=== PATIENT | male | born 1945 | race Caucasian/White ===

== ENCOUNTER 2019-07-07 01:09 | Outpatient (CLI) | payer BC, SELFPAY ==
[2019-07-07 12:33] LABS: Abs Immature Grans 0.01 k/cumm (0.0-0.09); Absolute Basophil Count 0.03 k/cumm (0.0-0.2); Absolute Eosinophil Count 0.31 k/cumm (0.0-0.7); Absolute Monocyte Count 0.58 k/cumm (0.11-0.7); Basophils % 0.5; Eosinophils % 4.9; HCT 39.6 % (40.0-50.0); HGB 12.9 g/dL (13.5-17.5); Immature Grans % 0.2 %; Lymphocytes % 20.5; Mean Corp. HGB Concentration 32.6 g/dL (32.0-36.0); Mean Corpuscular Hemoglobin 26.9 pg (27.0-33.0); Mean Corpuscular Volume 82.5 fL (80-95); Mean Platelet Volume 11.2 fL (8.0-11.0); Monocytes % 9.2; Neutrophils % 64.7; Platelet Count 321 x1000/uL (130-400); RBC Distribution Width 14.7 % (11.8-14.1); White Blood Cell Count 6.33 k/cumm (4.4-10.8)
[2019-07-07 13:19] LABS: ALT 19 U/L (16-63); AST 11 U/L (15-37); Albumin 3.8 g/dL (3.4-5.0); Alkaline Phosphatase 123 U/L (46-116); Anion Gap 11.8 mmol/L (3-11); BUN 20 mg/dL (7-18); Bilirubin, Total 0.6 mg/dL (0.2-1.0); CO2 21.2 mmol/L (21.0-32.0); CREATININE 1.17 mg/dL (0.70-1.30); Calcium 9.1 mg/dL (8.5-10.1); Calculated LDL 91 mg/dL (<100); Chloride 108 mmol/L (98-107); Cholesterol 161 mg/dL (<200); Glucose 107 mg/dL (74-106); HDL Cholesterol 47 mg/dL (40-60); Hemoglobin A1C 5.9 % (3.8-5.6); Potassium 4.3 mmol/L (3.5-5.1); Sodium 141 mmol/L (136-145); Total Protein 7.3 g/dL (6.4-8.2); Triglyceride 116 mg/dL (<150)
[2019-07-07 13:30] LABS: ESR 22 mm/hr (1-20)
[2019-07-08 09:15] LABS: PSA, Diagnostic <0.1 ng/mL (0.0-6.5)
== END 2019-07-07 01:29 ==
PROVIDERS: PCP Family Medicine; Visit Provider Family Medicine
DX: E11.9 Type 2 diabetes mellitus without complications (principal); C61 Malignant neoplasm of prostate
CPT/HCPCS: 36415; 80053; 80061; 85652; 83036; 84153; 85025

== ENCOUNTER 2019-07-25 11:23 | Emergency (ER) | payer BC, SELFPAY ==
[2019-07-25 11:33] VITALS: BP 164/79; PULSE 81; RESP 16; TEMP 36.3; O2SAT 97
[2019-07-25 12:10] LABS: Bilirubin Negative (Negative); Blood Small (Negative); Clarity Sl Cloudy (Clear); Glucose Negative (Negative); Ketones Negative (Negative); Leukocyte Esterase Small (Negative); Nitrite Negative (Negative); Urobilinogen 0.2 EU/dL (Up TO 0.2)
[2019-07-25 12:18] LABS: Bacteria Many HPF (Negative); C & S Indicated? Yes; WBC >50 HPF (0-5)
[2019-07-25 12:25] VITALS: BP 134/81; PULSE 78; RESP 18; TEMP 36.6; O2SAT 98
[2019-07-25 12:28] LABS: Abs Immature Grans 0.01 k/cumm (0.0-0.09); Absolute Basophil Count 0.04 k/cumm (0.0-0.2); Absolute Eosinophil Count 0.31 k/cumm (0.0-0.7); Absolute Lymphocyte Count 1.44 k/cumm (1.2-3.4); Absolute Monocyte Count 0.58 k/cumm (0.11-0.7); Absolute Neutrophil Count 5.41 k/cumm (1.2-6.7); Basophils % 0.5; HCT 39.3 % (40.0-50.0); HGB 12.9 g/dL (13.5-17.5); Immature Grans % 0.1 %; Lymphocytes % 18.5; Mean Corp. HGB Concentration 32.8 g/dL (32.0-36.0); Mean Corpuscular Hemoglobin 26.9 pg (27.0-33.0); Mean Platelet Volume 10.7 fL (8.0-11.0); Monocytes % 7.4; Neutrophils % 69.5; Platelet Count 302 x1000/uL (130-400); RBC 4.79 m/cumm (4.50-6.00); RBC Distribution Width 14.6 % (11.8-14.1); White Blood Cell Count 7.79 k/cumm (4.4-10.8)
--- NOTE | 2019-07-25 12:43 | ED.GENADUL_ITS ---
Discharge Plan Disposition Patient Disposition: HOME Condition: Stable Discharge Details Chief Complaint: Urinary Clinical Impression: Acute UTI Primary Care Provider: Mitul Velazquez ED Provider: Elie Hernandez Benicia Meds and New Rx's Prescriptions: New cephalexin 500 mg tablet 500 mg PO BID 7 Days Qty: 14 RF: 0 Continued omeprazole 20 mg capsule,delayed release(DR/EC) 20 mg PO DAILY RF: 0 tamsulosin 0.4 mg capsule 0.4 mg PO DAILY RF: 0 repaglinide 1 mg tablet 1 mg PO BID RF: 0 bisoprolol fumarate 5 mg tablet 1.25 mg PO DAILY RF: 0 aspirin [Adult Aspirin Regimen] 81 mg tablet,delayed release (DR/EC) 81 mg PO DAILY RF: 0 mesalamine 1,000 mg suppository 1 gm FL BID Qty: 30 RF: 11 sucralfate 100 mg/mL suspension 2 gm FL DAILY Qty: 30 RF: 11 Fergon 270 mg (27 mg iron) tablet 270 mg PO DAILY Qty: 30 RF: 2 amlodipine [Norvasc] 10 MG tablet 10 mg PO DAILY Qty: 90 RF: 4 oxybutynin chloride 5 mg tablet 5 mg PO DAILY RF: 0 Discharge Instructions Instructions: Urinary Tract Infection in Men (ED) Additional Instructions: Keflex as directed. Plenty of fluids to avoid dehydration. Cpsb-hna-[id number] medications such as Azo for symptomatic control. Please watch for new or worsening symptoms and return to the ER for any concerns. I would contact your primary care provider later today or tomorrow for prompt outpatient reevaluation and to follow-up with urology as already scheduled next week. Urine culture is pending Discharge Data Discharge Date/Time-TO BE ENTERED AT DEPARTURE: 07/25/19 13:17 Medical Decision Making 74-year-old gentleman with 1 week history of intermittent urinary hesitancy, dysuria, urgency. He denies any fever, abdominal pain, nausea, vomiting, back pain. No history of renal stones. He appears well, nontoxic. Given his age and comorbidities will obtain routine laboratory values as well as a urinalysis. Patient is scheduled to be seen by his urologist in 1 week. Work-up in the ER reveals urinalysis with greater than 50 white cells. GFR in the 50s. Otherwise rather unremarkable for emergent or acute process. No obvious hematuria, discussed that this greatly decreases the chance of a kidney stone and we discussed that clinically I did not believe this was a stone. Certainly urinary tract infection can cause the symptoms. He appears well, nontoxic. Will initiate Keflex therapy, culture pending. Patient is currently asymptomatic, has no questions or concerns, comfortable with discharge, Keflex, encouraged to return to the ER for new or worsening symptoms, otherwise follow- up with his urology team next week as already scheduled. Medical Records Medical records reviewed: Yes I reviewed the patient's medical records. Lab Data Lab results reviewed: Yes I reviewed the patient's lab results. Lab results narrative: 07/25/19 12:06 Urine - Reflex from Ua Urine Culture - Pending Laboratory Tests Range/Units 07/25/19 07/25/19 07/25/19 12:06 12:15 12:15 WBC (4.4-10.8) k/cumm 7.79 RBC (4.50-6.00) m/cumm 4.79 Hgb (13.5-17.5) g/dL 12.9 L Hct (40.0-50.0) % 39.3 L MCV (80-95) fL 82.0 MCH (27.0-33.0) pg 26.9 L MCHC (32.0-36.0) g/dL 32.8 RDW (11.8-14.1) % 14.6 H Plt Count (130-400) x1000/uL 302 MPV (8.0-11.0) fL 10.7 Immature Gran % % 0.1 Neutrophils % 69.5 Lymphocytes % 18.5 Monocytes % 7.4 Eosinophils % 4.0 Basophils % 0.5 Absolute Neutrophils (1.2-6.7) k/cumm 5.41 Absolute Lymphocytes (1.2-3.4) k/cumm 1.44 Absolute Monocytes (0.11-0.7) k/cumm 0.58 Absolute Eosinophils (0.0-0.7) k/cumm 0.31 Absolute Basophils (0.0-0.2) k/cumm 0.04 Sodium (136-145) mmol/L 143 Potassium (3.5-5.1) mmol/L 4.3 Chloride (98-107) mmol/L 108 H Carbon Dioxide (21.0-32.0) mmol/L 25.7 Anion Gap (3-11) mmol/L 9.3 BUN (7-18) mg/dL 17 Creatinine (0.70-1.30) mg/dL 1.38 H Estimated GFR/1.73 m2 (mL/min/1.73m2) 50.65 Glucose (74-106) mg/dL 99 Calcium (8.5-10.1) mg/dL 8.7 Total Bilirubin (0.2-1.0) mg/dL 0.5 AST (15-37) U/L 13 L ALT (16-63) U/L 22 Alkaline Phosphatase (46-116) U/L 139 H Total Protein (6.4-8.2) g/dL 7.8 Albumin (3.4-5.0) g/dL 3.7 Urine Color (Yellow) Yellow Urine Clarity (Clear) Sl cloudy Urine pH (5-8) 6.0 Ur Specific [place] (1.005-1.025) 1.020 Urine Protein (Negative) mg/dL Trace H Urine Ketones (Negative) mg/dL Negative Urine Blood (Negative) Small H Urine Nitrite (Negative) Negative Urine Bilirubin (Negative) Negative Urine Urobilinogen (Up TO 0.2) EU/dL 0.2 Ur Leukocyte Esterase (Negative) Small H Urine RBC Not Applicable Urine WBC (0-5) HPF >50 H Ur Epithelial Cells Not Applicable Urine Crystals Not Applicable Urine Bacteria (Negative) HPF Many Urine Mucus Not Applicable Ur Culture Indicated? Yes Urine Glucose (Negative) mg/dL Negative HPI General Mode of arrival: ambulatory . Date/Time Provider Initiated Documentation: 07/25/19 11:23 . Limitations to Documentation: no limitations . Information obtained by: patient . HPI Narrative: 74-year-old gentleman with a history of prostate cancer, status post radiation, diabetes type 2, hyperlipidemia, hypertension, ankylosing spondylitis, history of GI bleed, presents to the ER today for evaluation of what he describes as penile discomfort, urinary urgency, urinary retention, intermittently for the past 6 days. He contacted his primary care provider and they recommended coming to the ER. He is scheduled to be seen by the urology team next week. He denies any fever, chills, abdominal pain, nausea, vomiting, diarrhea, flank pain, any change of his chronic back pain. Denies history of renal stones. Patient does note that he has been unable to retract his foreskin since he had the radiation back in 2017, this is not new or different. He reports that his symptoms were last present earlier this morning between 3 and 4 AM but he is currently asymptomatic. Patient has taken an extra dose of Tamsulosin on a daily basis over the past week in order to alleviate his symptoms Related Data Home Medications Medication Instructions Recorded Confirmed amlodipine [Norvasc] 10 mg PO DAILY #90 tab-cap 06/27/14 07/19/19 aspirin 81 mg tablet,delayed 81 mg PO DAILY 07/05/19 07/19/19 release bisoprolol fumarate 5 mg tablet 1.25 mg PO DAILY tab 07/05/19 07/19/19 mesalamine 1,000 mg rectal 1 gm FL BID #30 each 07/05/19 07/25/19 suppository omeprazole 20 mg capsule,delayed 20 mg PO DAILY 07/05/19 07/25/19 release repaglinide 1 mg tablet 1 mg PO BID tab 07/05/19 07/25/19 tamsulosin 0.4 mg capsule 0.4 mg PO DAILY 07/05/19 07/25/19 sucralfate 100 mg/mL oral 2 gm FL DAILY #30 day 07/06/19 07/25/19 suspension ferrous gluconate 270 mg (27 mg 270 mg PO DAILY #30 tab 07/19/19 07/25/19 iron) tablet oxybutynin chloride 5 mg tablet 5 mg PO DAILY 07/21/19 07/25/19 cephalexin 500 mg PO BID 7 Days #14 tab 07/25/19 Previous Rx's Medication Instructions Recorded mesalamine 1,000 mg rectal 1 gm FL BID #30 each 07/05/19 suppository sucralfate 100 mg/mL oral 2 gm FL DAILY #30 day 07/06/19 suspension ferrous gluconate 270 mg (27 mg 270 mg PO DAILY #30 tab 07/19/19 iron) tablet cephalexin 500 mg PO BID 7 Days #14 tab 07/25/19 Allergies Allergy/AdvReac Type Severity Reaction Status Date / Time No Known Allergies Allergy Unverified 07/25/19 11:37 General Stated Complaint: Urinary CHARAN: 3 Review of Systems Constitutional Constitutional: Denies chills, Denies fatigue, Denies fever(s) and Denies headache(s) ENT Ears, Nose, Mouth, and Throat: Denies headache(s) Cardiovascular Cardiovascular: Denies chest pain and Denies dyspnea Respiratory Respiratory: Denies dyspnea Gastrointestinal Gastrointestinal: Denies abdominal pain, Denies nausea and Denies vomiting Genitourinary Genitourinary: Denies hematuria, Reports difficulty urinating, Denies genital lesions, Reports genital pain, Reports dysuria, Denies flank pain, Denies penile discharge, Denies scrotal swelling, Denies testicular mass, Denies testicular pain, Reports urinary frequency, Reports urinary hesitancy and Denies urinary incontinence Musculoskeletal Musculoskeletal: Reports back pain (Chronic) Integumentary/Breasts Skin/Breast: Denies rash Neurologic Neurologic: Denies headache(s) Endocrine Endocrine: Denies fatigue Hematologic/Lymphatic Hematologic/Lymphatic: Denies easy bleeding and Denies easy bruising [facility] Family History Mother No problems noted. Father No problems noted. Sister No problems noted. Sister No problems noted. Brother No problems noted. Daughter No problems noted. Daughter No problems noted. Maternal Grandfather No problems noted. Paternal Grandfather No problems noted. Maternal Grandmother No problems noted. Paternal Grandmother No problems noted. Social History Smoking/Tobacco Use Status: Former Tobacco Use Quit Date: 06/08/02 Tobacco: How many years used: 15 Second Hand Exposure: No Alcohol Intake: former Drug use: Occasionally Substance use type: marijuana Caregiver/Support person: No Household members: spouse Housing: house Communication Needs: None Do you need help understanding health information?: Rarely Pets and animals: No Sexually active: No Do you think of yourself as: straight/heterosexual Current gender identity: male What is your relationship status?: How often do you talk on the phone with friends or family?: twice per week How often do you get together with friends or relatives?: three or more times per week How often do you attend mormonism or taoist services?: decline to answer Do you belong to any clubs or organized social groups?: no Panel score (0-1 are the most socially isolated patients): 2 What type of physical activity do you participate in: none Frequency: does not exercise Rosemary/Nondenominational: None Special rosemary needs: No Seatbelt use: always Helmet use: No Drive intox or ride w/intox solo truck driver: No Exam Const General: cooperative, healthy appearing, comfortable and no acute distress Orientation: alert and awake HENNM Head: normal to inspection, normocephalic and atraumatic Mouth: moist mucous membranes Eyes Conjunctivae: conjunctivae normal Neck Neck: normal visual inspection, trachea midline and supple Resp Effort & Inspection: normal respiratory effort Auscultation: clear to auscultation bilaterally Cardio Rate: regular rate Rhythm: regular rhythm GI Inspection: normal to inspection Palpation: soft, not firm, no guarding, no masses, no pulsatile masses and nontender Auscultation: normal bowel sounds Male General Exam: No normal external exam, No ecchymosis, No edema, No erythema, No hernia, No inguinal lymphadenopathy, No lesions, No perineal induration and No tenderness Penis: normal penis (Normal except for foreskin as below), not edematous, non retractile foreskin (Patient reports that this is baseline status post radiation) and no swelling Scrotum: scrotum normal Testes: normal Neuro General: alert and awake Psych Appearance: grossly normal Mental Status: mental status grossly normal Course Vital Signs Vital signs: Vital Signs Temperature 36.3 C L 07/25/19 11:33 Pulse 81 07/25/19 11:33 Respiratory Rate 16 07/25/19 11:33 Blood Pressure 164/79 H 07/25/19 11:33 Pulse Oximetry 97 07/25/19 11:33 Temperature 36.6 C 07/25/19 12:25 Temperature Source Skin 07/25/19 12:25 Pulse 78 07/25/19 12:25 Pulse Rhythm Regular 07/25/19 12:25 Pulse Strength Normal 07/25/19 12:25 Respiratory Rate 18 07/25/19 12:25 Respiratory Effort 07/25/19 12:25 Respiratory Depth Normal 07/25/19 12:25 Respiratory Pattern Normal 07/25/19 12:25 Blood Pressure 134/81 07/25/19 12:25 Blood Pressure Mean 98 07/25/19 12:25 Blood Pressure Position Sitting 07/25/19 12:25 Pulse Oximetry 98 07/25/19 12:25 Oxygen Delivery Method Room Air 07/25/19 12:25 Oxygen Flow Rate 0 07/25/19 12:25 Pain Level 5 07/25/19 12:25 Comment 07/25/19 11:33 Lab/Test Results Lab/Test Results: 07/25/19 12:06 Urine - Reflex from Ua Urine Culture - Pending Laboratory Tests Range/Units 07/25/19 07/25/19 12:06 12:15 WBC (4.4-10.8) k/cumm 7.79 RBC (4.50-6.00) m/cumm 4.79 Hgb (13.5-17.5) g/dL 12.9 L Hct (40.0-50.0) % 39.3 L MCV (80-95) fL 82.0 MCH (27.0-33.0) pg 26.9 L MCHC (32.0-36.0) g/dL 32.8 RDW (11.8-14.1) % 14.6 H Plt Count (130-400) x1000/uL 302 MPV (8.0-11.0) fL 10.7 Immature Gran % % 0.1 Neutrophils % 69.5 Lymphocytes % 18.5 Monocytes % 7.4 Eosinophils % 4.0 Basophils % 0.5 Absolute Neutrophils (1.2-6.7) k/cumm 5.41 Absolute Lymphocytes (1.2-3.4) k/cumm 1.44 Absolute Monocytes (0.11-0.7) k/cumm 0.58 Absolute Eosinophils (0.0-0.7) k/cumm 0.31 Absolute Basophils (0.0-0.2) k/cumm 0.04 Urine Color (Yellow) Yellow Urine Clarity (Clear) Sl cloudy Urine pH (5-8) 6.0 Ur Specific [place] (1.005-1.025) 1.020 Urine Protein (Negative) mg/dL Trace H Urine Ketones (Negative) mg/dL Negative Urine Blood (Negative) Small H Urine Nitrite (Negative) Negative Urine Bilirubin (Negative) Negative Urine Urobilinogen (Up TO 0.2) EU/dL 0.2 Ur Leukocyte Esterase (Negative) Small H Urine RBC Not Applicable Urine WBC (0-5) HPF >50 H Ur Epithelial Cells Not Applicable Urine Crystals Not Applicable Urine Bacteria (Negative) HPF Many Urine Mucus Not Applicable Ur Culture Indicated? Yes Urine Glucose (Negative) mg/dL Negative
[2019-07-25 12:45] LABS: ALT 22 U/L (16-63); AST 13 U/L (15-37); Albumin 3.7 g/dL (3.4-5.0); Alkaline Phosphatase 139 U/L (46-116); Anion Gap 9.3 mmol/L (3-11); BUN 17 mg/dL (7-18); Bilirubin, Total 0.5 mg/dL (0.2-1.0); CO2 25.7 mmol/L (21.0-32.0); CREATININE 1.38 mg/dL (0.70-1.30); Calcium 8.7 mg/dL (8.5-10.1); Chloride 108 mmol/L (98-107); Estimated GFR 50.65 (mL/min/1.73m2); Glucose 99 mg/dL (74-106); Potassium 4.3 mmol/L (3.5-5.1); Sodium 143 mmol/L (136-145); Total Protein 7.8 g/dL (6.4-8.2)
[2019-07-25 13:17] VITALS: BP 134/81; PULSE 78; RESP 18; TEMP 36.6; O2SAT 98
== END 2019-07-25 13:17 | disposition home or self-care (01) ==
PROVIDERS: Emergency Provider Physician Assistant; PCP Family Medicine
DX: N39.0 Urinary tract infection, site not specified (principal); B96.4 Proteus (mirabilis) (morganii) as the cause of diseases classified elsewhere; E11.9 Type 2 diabetes mellitus without complications; I10 Essential (primary) hypertension
CPT/HCPCS: 36415; 80053; 87077; 99283; 81003; 81015; 85025; 87086; 87186

== ENCOUNTER 2019-08-19 01:56 | Outpatient (CLI) | payer BC, SELFPAY ==
[2019-08-22 10:41] LABS: Syphilis Serology (RPR) Negative (Negative)
[2019-08-22 13:33] LABS: TB1 Ag minus Nil 7.35 IU/ml; TB2 Ag minus Nil 7.87 IU/mL
[2019-08-23 08:49] LABS: TB Interpretation Positive (Negative)
== END 2019-08-19 02:16 ==
PROVIDERS: PCP Family Medicine; Visit Provider Family Medicine
DX: Z11.3 Encounter for screening for infections with a predominantly sexual mode of transmission (principal); Z11.1 Encounter for screening for respiratory tuberculosis
CPT/HCPCS: 36415; 86480; 86592

== ENCOUNTER 2019-08-23 11:43 | Outpatient (CLI) | payer BC, SELFPAY ==
--- NOTE | 2019-08-23 | DI.RAD_ITS ---
EXAM: XR CHEST 2V PA LATERAL CLINICAL HISTORY: R/O TB, POSITIVE QUANTIFERON TECHNIQUE: 2D digital imaging was performed. COMPARISON: No exams were available for comparison FINDINGS: MEDIASTINUM: Normal. HEART: Normal. PULMONARY VASCULATURE: Normal. LUNGS: Clear. PLEURAL SPACE: No pleural effusion or pneumothorax. BONE:Normal. OTHER FINDINGS:Normal. IMPRESSION: No acute pulmonary findings. DATA REPOSITORY: RADIATION DOSE DELIVERED:
== END 2019-08-23 12:03 ==
PROVIDERS: PCP Family Medicine; Visit Provider Nurse Practitioner Adult Health
DX: R76.12 Nonspecific reaction to cell mediated immunity measurement of gamma interferon antigen response without active tuberculosis (principal)
CPT/HCPCS: 71046

== ENCOUNTER 2019-11-28 00:47 | Outpatient (CLI) | payer BC, SELFPAY ==
--- NOTE | 2019-11-28 07:30 | DI.MRI_ITS ---
EXAM: MR LUMBAR SPINE WO CLINICAL HISTORY: SPINAL STENOSIS,ANKYLOSING SPONDYLITIS,[id number],062,M45.9. TECHNIQUE: Multiplanar multisequence MRI of the Lumbar spine was performed. COMPARISON: No exams were available for comparison FINDINGS: Bones: The last intervertebral disc space is designated the L5/S1 level for the numbering purpose of this examination. The vertebral body heights are well maintained. Alignment is satisfactory. The si gnal characteristics are unremarkable. There are bridging osteophytes seen anteriorly most marked at the L2-3 level. Cord: The conus tip ends at the T12 level. It is of normal size and signal intensity. T12-L1: No disc herniations or bulges are present. No central spinal canal or neural foraminal stenos is. L1-2: No disc herniations or bulges are present. No central spinal canal or neural foraminal stenosis . L2-3: There is disc desiccation and a diffuse disc bulge. Mild narrowing of the central spinal canal is noted. No significant neural foraminal stenosis is seen. L3-4: There is disc desiccation and a diffuse disc bulge. There are hypertrophic changes of the face ts and ligamentum flavum. These all contribute to cause severe central spinal canal stenosis. There is moderate right and marked left neural foraminal stenosis. L4-5: There is disc desiccation and a diffuse disc bulge. There are hypertrophic changes of the face ts and ligamentum flavum. These all contribute to cause severe central spinal canal stenosis. There is moderate bilateral neural foraminal stenosis. L5-S1: There is a diffuse disc bulge. Facet arthropathy is present. No significant central spinal c anal stenosis is present. There is severe left and moderate right neural foraminal stenosis. Soft tissues: The visualized SI joints and sacrum are well maintained. The paraspinal soft tissues ar e unremarkable. There are bilateral renal cysts. IMPRESSION: 1. Multilevel degenerative changes throughout the lumbar spine. 2. The findings are most marked at L3-4 and L4-L5 where there is significant central spinal canal and neural foraminal stenosis. Please see the above discussion for complete details. DATA REPOSITORY:
== END 2019-11-28 01:07 ==
PROVIDERS: PCP Family Medicine; Visit Provider Family Medicine
DX: M48.062 Spinal stenosis, lumbar region with neurogenic claudication (principal); M51.36 Other intervertebral disc degeneration, lumbar region; M45.7 Ankylosing spondylitis of lumbosacral region
CPT/HCPCS: 72148

== ENCOUNTER 2020-01-17 10:26 | Outpatient (CLI) | payer BC, SELFPAY ==
[2020-01-17 12:27] LABS: Abs Immature Grans 0.02 10^3/uL (0.0-0.06); Absolute Basophil Count 0.06 10^3/uL (0.0-0.2); Absolute Eosinophil Count 0.29 10^3/uL (0.0-0.7); Absolute Lymphocyte Count 1.49 10^3/uL (1.2-3.4); Absolute Neutrophil Count 5.41 10^3/uL (1.2-6.7); Basophils % 0.8; Eosinophils % 3.6; HCT 39.7 % (40.0-50.0); HGB 12.7 g/dL (13.5-17.5); Immature Grans % 0.3; Lymphocytes % 18.7; MCH 26.1 pg (27.0-33.0); MCV 81.5 fL (80-95); Monocytes % 8.8; Neutrophils % 67.8; Nucleated RBC 0 %; Platelet Count 301 10^3/uL (130-400); RBC 4.87 10^6/uL (4.36-5.78); RDW 15.1 % (11.8-14.1); RDW-SD 45.2 fL; WBC 7.97 10^3/uL (4.4-10.8)
[2020-01-17 12:46] LABS: ALT 33 U/L (16-63); AST 27 U/L (15-37); Alkaline Phosphatase 129 U/L (46-116); Anion Gap 10.6 mmol/L (3-11); BUN 21 mg/dL (7-18); Bilirubin, Total 0.7 mg/dL (0.2-1.0); CO2 24.4 mmol/L (21.0-32.0); CREATININE 1.23 mg/dL (0.70-1.30); Calcium 9.5 mg/dL (8.5-10.1); Chloride 105 mmol/L (98-107); Estimated GFR 57.84 (mL/min/1.73m2); Glucose 101 mg/dL (74-106); Potassium 4.3 mmol/L (3.5-5.1); Sodium 140 mmol/L (136-145); Total Protein 7.9 g/dL (6.4-8.2)
[2020-01-17 12:57] LABS: Bilirubin Negative (Negative); Blood Negative (Negative); Clarity Clear (Clear); Glucose Negative (Negative); Ketones Negative (Negative); Leukocyte Esterase Negative (Negative); Nitrite Negative (Negative); Urobilinogen 0.2 EU/dL (Up TO 0.2); pH 5.5 (5-8)
[2020-01-17 13:10] LABS: Bacteria Rare HPF (Negative); C & S Indicated? No; Casts Negative LPF (Negative); Crystals Negative HPF (Negative); Epithelial Cells Rare HPF (Negative); Mucus Negative (Negative); Other Cells Negative (Negative); RBC 0-2 HPF (0-2); WBC 0-2 HPF (0-5)
== END 2020-01-17 10:46 ==
PROVIDERS: PCP Family Medicine; Visit Provider Family Medicine
DX: I10 Essential (primary) hypertension (principal); R60.0 Localized edema; E78.5 Hyperlipidemia, unspecified; R82.998 Other abnormal findings in urine; Z01.818 Encounter for other preprocedural examination
CPT/HCPCS: 36415; 80053; 81003; 81015; 85025

== ENCOUNTER 2020-01-19 15:30 | Outpatient (CLI) | payer BC, SELFPAY ==
--- NOTE | 2020-01-19 | DI.RAD_ITS ---
EXAM: XR CHEST 2V PA LATERAL CLINICAL HISTORY: POSITIVE QUANTIFERON TEST TECHNIQUE: 2D digital imaging was performed. COMPARISON: CR XR CHEST 2V PA LATERAL from 08/23/2019 FINDINGS: MEDIASTINUM: Normal. HEART: Normal. PULMONARY VASCULATURE: Normal. LUNGS: Clear. PLEURAL SPACE: No pleural effusion or pneumothorax. BONE:Within normal limits for the patient's age. OTHER FINDINGS:Normal. IMPRESSION: No acute pulmonary findings. DATA REPOSITORY: RADIATION DOSE DELIVERED:
== END 2020-01-19 15:50 ==
PROVIDERS: PCP Family Medicine; Visit Provider Nurse Practitioner Adult Health
DX: R76.12 Nonspecific reaction to cell mediated immunity measurement of gamma interferon antigen response without active tuberculosis (principal)
CPT/HCPCS: 71046

== ENCOUNTER 2020-11-01 01:52 | Outpatient (CLI) | payer BC, SELFPAY ==
--- NOTE | 2020-11-01 07:30 | DI.RAD_ITS ---
Exam(s) XR SHOULDER RT COMPLETE 2+V EXAM: XR SHOULDER RT COMPLETE 2+V CLINICAL HISTORY: worsening RT SHOULDER PAIN, M25.511. TECHNIQUE: 2D digital imaging was performed. COMPARISON: No exams were available for comparison FINDINGS: There is no evidence of fracture or dislocation no abnormal soft tissue calcifications. On 1 image t here appears to be an osteophytic ridge on the undersurface of the acromion. This may be causing an element of impingement. Nevertheless, the subacromial space does not appear significantly diminished . Bone density is age-appropriate. No lytic osseous lesions evident. IMPRESSION: DATA REPOSITORY: RADIATION DOSE DELIVERED:
== END 2020-11-01 02:12 ==
PROVIDERS: PCP Nurse Practitioner Family; Visit Provider Nurse Practitioner Family
DX: M25.511 Pain in right shoulder (principal)
CPT/HCPCS: 73030

== ENCOUNTER 2021-04-02 10:28 | Outpatient (CLI) | payer BC, SELFPAY ==
[2021-04-02 12:33] LABS: HGB 12.6 g/dL (13.5-17.5); MCH 25.1 pg (27.0-33.0); MCHC 31.5 % (32.0-36.0); MCV 79.7 fL (80-95); MPV 11.2 fL (8.0-11.0); Platelet Count 287 10^3/uL (130-400); RBC 5.02 10^6/uL (4.36-5.78); RDW 15.9 % (11.8-14.1); RDW-SD 45.5 fL; WBC 8.06 10^3/uL (4.4-10.8)
[2021-04-02 12:47] LABS: ALT 36 U/L (16-63); AST 29 U/L (15-37); Alkaline Phosphatase 132 U/L (46-116); Anion Gap 14.6 mmol/L (3-11); BUN 16 mg/dL (7-18); Bilirubin, Total 0.7 mg/dL (0.2-1.0); CO2 23.4 mmol/L (21.0-32.0); CREATININE 1.2 mg/dL (0.70-1.30); Calcium 9.1 mg/dL (8.5-10.1); Calculated LDL 126 mg/dL (<100); Chloride 106 mmol/L (98-107); Cholesterol 205 mg/dL (<200); Estimated GFR 59.35 (mL/min/1.73m2); Glucose 105 mg/dL (74-106); HDL Cholesterol 49 mg/dL (40-60); Potassium 3.8 mmol/L (3.5-5.1); Sodium 144 mmol/L (136-145); Total Protein 8.2 g/dL (6.4-8.2); Triglyceride 151 mg/dL (<150)
[2021-04-02 13:02] LABS: Hemoglobin A1C 6.3 % (<5.7)
[2021-04-02 13:13] LABS: COMMENT (LAB VIEW ONLY) 78.71 mg/dL; Microalb ug/mg Crea 54.1 ug/mg Cr
[2021-04-02 22:28] LABS: PSA, Diagnostic <0.1 ng/mL (0.0-6.5)
== END 2021-04-02 10:29 | disposition home or self-care (01) ==
LOC: LOS 10:28
PROVIDERS: PCP Nurse Practitioner Family; Visit Provider Family Medicine
DX: I10 Essential (primary) hypertension (principal); E78.2 Mixed hyperlipidemia; E11.9 Type 2 diabetes mellitus without complications; C61 Malignant neoplasm of prostate
CPT/HCPCS: 36415; 80053; 80061; 85027; 82043; 82570; 83036; 84153

== ENCOUNTER 2021-05-09 11:10 | Outpatient (REF) | payer BC, SELFPAY ==
[2021-05-10 11:53] LABS: COVID-19 RT-PCR UVMMC Result Negative (Negative)
== END 2021-05-09 11:11 | disposition home or self-care (01) ==
LOC: LBN 11:10
PROVIDERS: PCP Nurse Practitioner Family; Visit Provider Nurse Practitioner Family
DX: Z20.822 Contact with and (suspected) exposure to COVID-19 (principal)
CPT/HCPCS: U0003

== ENCOUNTER 2021-10-02 03:03 | Outpatient (CLI) | payer BC, SELFPAY ==
--- NOTE | 2021-10-02 13:45 | DI.MRI_ITS ---
Exam(s) MR UPPER JOINT RT WO EXAM: MR UPPER JOINT RT WO CLINICAL HISTORY: Chronic rotator cuff tear weak + pain,TENDONITIS,ROTATOR CUFF ARTHROPATHY,. TECHNIQUE: Multiplanar multisequence MRI was performed. COMPARISON: Plain films [address] 05 September 2021 FINDINGS: Bones: There is no fracture or contusion pattern. The acromioclavicular joint shows mild spurring. There is some fluid in the joint. This may impinge on the distal supraspinatus muscle tendon junction. There is spurring at the tip of the acromion. There is mild spurring at the greater and lesser tuberosities. Glenohumeral joint: There is a small amount of fluid within the glenohumeral joint. There is a small amount of fluid in the subacromial subdeltoid bursa and subcoracoid bursa. Rotator Cuff: The supraspinatus tendon shows distal thinning consistent with a severe partial tear. The infraspina tus tendon shows some edema but no focal tear. There is no supraspinatus mitral at muscle atrophy bu t there is moderate atrophy of the infraspinatus muscle. The subscapularis and teres minor are jorje l. Labrum and biceps anchor: The biceps tendon is located. The anchor is well maintained. The labrum show no gross evidence of te ar. IMPRESSION: Severe partial tear of the supraspinatus tendon. Infraspinatus tendinitis and muscle atrophy. DATA REPOSITORY:
== END 2021-10-02 03:23 ==
PROVIDERS: PCP Nurse Practitioner Family; Visit Provider Student in an Organized Health Care Education/Training Program
DX: M25.511 Pain in right shoulder (principal); M25.411 Effusion, right shoulder; M75.101 Unspecified rotator cuff tear or rupture of right shoulder, not specified as traumatic; M75.21 Bicipital tendinitis, right shoulder; M12.811 Other specific arthropathies, not elsewhere classified, right shoulder
CPT/HCPCS: 73221

== ENCOUNTER 2021-10-15 01:06 | Outpatient (CLI) | payer BC, SELFPAY ==
[2021-10-15 11:31] LABS: Source Nasal/Nares
[2021-10-15 14:08] LABS: COVID-19 PCR Negative (Negative)
== END 2021-10-15 01:07 | disposition home or self-care (01) ==
LOC: LBO 01:06
PROVIDERS: PCP Nurse Practitioner Family; Visit Provider Student in an Organized Health Care Education/Training Program
DX: Z20.822 Contact with and (suspected) exposure to COVID-19 (principal); Z01.818 Encounter for other preprocedural examination
CPT/HCPCS: 87635

== ENCOUNTER 2021-10-17 10:09 | Day surgery (SDC) | payer BC, SELFPAY ==
[2021-10-17] VITALS (7 sets, daily range): BP systolic 104–149; BP diastolic 41–83; PULSE 59–71; RESP 16–25; TEMP 36.3–36.9; O2SAT 93–98; BMI 34.3
--- NOTE | 2021-10-17 07:06 | W.ANESPRE ---
General Info Date of Service Date Performed: 10/17/21 Height: 5 ft 8 in Weight: 102.512 kg Body Mass Index (BMI): 34.3 Surgical Procedure: Operation Date: 10/17/21 12:10 Proposed Procedure Side Surgeon p Shoulder Total Arthroplasty Reverse w/Biceps Tenodesis, any other indicated procedures Right Jim Chauhan MD Meds Allergies and Home Medications Allergies Allergy/AdvReac Type Severity Reaction Status Date / Time No Known Allergies Allergy Verified 10/17/21 10:38 Home Medication Medication Instructions Recorded tamsulosin 0.4 mg capsule 0.4 mg PO DAILY #90 caps 03/18/21 atorvastatin 20 mg tablet 20 mg PO DAILY #90 tabs 04/03/21 gabapentin 100 mg capsule 200 mg PO BID #180 caps 08/21/21 tramadol 100 mg tablet,extended See Rx Instructions PO .COMPLEX 08/21/21 release 24 hr #56 tabs oxybutynin chloride 5 mg tablet 5 mg PO DAILY #90 tabs 08/27/21 naproxen sodium 220 mg capsule 220 mg PO BID PRN 09/17/21 (Aleve) amlodipine 10 mg tablet (Norvasc) 10 mg PO DAILY #90 tab-caps 10/01/21 omeprazole 20 mg capsule,delayed 20 mg PO DAILY #90 caps 10/07/21 release aspirin 81 mg tablet,delayed 81 mg PO DAILY Prevent blood clot 10/17/21 release 14 days #14 tabs naproxen 250 mg tablet 250 - 500 mg PO BID PRN #40 tabs 10/17/21 oxycodone 5 mg tablet 5 - 10 mg PO Q4H PRN moderate to 10/17/21 severe pain #18 tabs Current Visit Medications: Current Medications Generic Name Dose Route Start Last Admin Trade Name Freq PRN Reason Stop Dose Admin Tranexamic Acid 1,000 mg/ 60 mls @ 360 mls/hr 10/17/21 06:00 Sodium Chloride IVPB 10/17/21 16:00 PREOP GABINO Ringer's Solution 1,000 mls @ 60 mls/hr 10/17/21 06:00 IV 11/15/21 23:59 INFUSION GABINO Cefazolin Sodium/Dextrose 2 gm in 50 mls @ 100 mls/hr 10/17/21 06:00 Ancef Duplex IVPB 10/17/21 16:00 PREOP GABINO IV Miscellaneous Supplies 1 each 10/17/21 06:00 Iv Access IV 11/15/21 23:59 DIRECTED GABINO Sodium Chloride 0 ml 10/17/21 06:00 Normal Saline Flush 10 Ml Syr IV 11/15/21 23:59 PRN PRN Sodium Chloride 0 ml 10/17/21 06:00 Normal Saline 10 Ml Vial IJ 11/15/21 23:59 DIRECTED PRN Sterile Water 0 ml 10/17/21 06:00 Water,Injection,Sterile 10 Ml Vial IJ 11/15/21 23:59 DIRECTED PRN PFSH Active Problems Active Problems: Problem Status Onset Code Tendonitis of long head of biceps brachii of right shoulder M75.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 Chronic pain syndrome G89.4 Rotator cuff tear arthropathy of right shoulder M75.101, M12.811 Pedal edema R60.0 Presence of Watchman left atrial appendage closure device Z95.818 Atrial fibrillation I48.91 Constipation K59.00 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 Peripheral neuropathy G62.9 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 Prostate cancer C61 Angiodysplasia of colon K55.20 Hyperlipidemia E78.5 Hypertension I10 Ankylosing spondylitis M45.9 HLA B27 (HLA B27 positive) Z15.89 Essential tremor G25.0 Intention tremor G25.2 Medical History Medical History GERD (gastroesophageal reflux disease) History of ETOH abuse History of lower GI bleeding Overactive bladder Surgical History Surgical History (Updated 10/17/21 @ 10:36 by Yeimy Luis) History of total right hip replacement Status post cardiac surgery Watchmen Tobacco Smoking/Tobacco Use Status: Former Tobacco Use Passive smoking exposure: Yes Second hand exposure: Yes Alcohol Alcohol Intake: current Alcohol intake frequency: a few times a month Alcohol type: wine Substance Use Substance use: Occasionally Substance use type: marijuana Vital Signs and Lab Results Vital Signs Most Recent Vital Signs in EMR: Temp Pulse Resp BP Pulse Ox 36.7 C 71 16 147/73 H 98 10/17/21 10:29 10/17/21 10:29 10/17/21 10:29 10/17/21 10:29 10/17/21 10:29 Lab Results Blood Type / Crossmatch: No Data to Display Complete Blood Count: No Data to Display Complete Metabolic Panel: No Data to Display Liver Function Panel: No Data to Display Coagulation Panel: No Data to Display Cardiac Panel: No Data to Display Arterial Blood Gas: No Data to Display Venous Blood Gas: No Data to Display Pancreas Panel: No Data to Display Thyroid Panel: No Data to Display Infectious Disease: Coronavirus (COVID-19)(PCR) Negative (Negative) 10/15/21 10:23 Coronavirus 2019 Source Nasal/Nares 10/15/21 10:23 Blood Cultures: No Data to Display Toxicology Panel: No Data to Display Imaging and Studies Imaging and Studies Study information below may be from another EMR and interpreted by another provider. Please see original notes in EMR for more complete details. EKG Summary: 01/2020: a fib, LAD, nonspecific t abnormalities lateral leads. Echocardiogram Summary: 01/2020: LVEF 62%, moderate biatrial enlargement. no hemodynamically significant valve disease. mild MR, trace TR, trace AR. Anesthesia Assessment and Plan Anesthesia History Personal History: No History of Anesthesia Complications Family History: No Family History of Anesthesia Complications Exercise Tolerance Exercise Tolerance: Metabolic Equivalents>4 Pertinent Negatives Pertinent Negatives: No Symptoms of GERD, No Major Cardiovascular Symptoms or Complaints and No Major Pulmonary Symptoms or Complaints Cardiac & Pulmonary Exam Cardiac Exam: Normal S1/S2 Heart Sounds Pulmonary Exam: Clear Bilateral Breath Sounds Implantable Cardiac Device Does patient have a Pacemaker or an ICD?: No Airway Exam Known Difficult Airway: No Mallampati Class: 2 Mouth Opening: Normal (> 3cm) Thyromental Distance: Greater than 3 cm Neck Range of Motion: Limited ROM Neck Circumference: Normal Teeth Condition: Generalized Poor Dentition Airway Comments: Missing some teeth 48 to 44' 38 to 35 11' 18 to 15 and 28 to 25 ASA Classification ASA Score: ASA 2 Emergency Case?: No NPO Status NPO Status: NPO Clears >2 hours, Solids >8 hours Anesthesia Plan Resuscitation Status: Full Code Anesthesia Technique: General Anesthesia Airway Planned: Endotracheal Tube Pain Management: Surgeon and patient request nerve block Monitors Used: Standard Monitors Preoperative Comments:: 76 yo male right shoulder pain/RTC tear. Sig PMHx: DM2 (last A1c 6.8%), HTN (amlodipine), ankylosing spondylitis, chronic pain, afib (watchman 2019, no anticoagulation), GERD (omeprazole), prostate CA (radiation, obstruction - Tamsulosin/oxybutynin) , spinal stenosis (lami L3,4,5), former smoker. Previous Anes: Mac 4 grade 1 mask with OPA (2019).
--- NOTE | 2021-10-17 10:42 | W.ANESNERVE ---
Nerve Block Single Injection Procedure Date and Time Date Performed: 10/17/21 Procedure Start: 11:42 Location Where Procedure Performed Procedure Location: Day Surgery Unit Reason Performed: Postoperative Analgesia Requesting Provider: Jim Chauhan Timeout Performed Timeout Performed: Yes Monitoring Used ECG, Blood Pressure, SpO2 and ETCO2 Sterility Sterility: Hand Hygiene, Surgical Cap, Surgical Mask, Sterile Gloves and Chlorhexidine Sedation Given During Procedure Sedation Given (Indicate Dose Given): No Sedation given Patient Mental Status Patient Mental Status: Awake Nerve Block 1st Nerve Block: Laterality: Right Block Type: Interscalene Needle / Catheter Used: 100mm SonoPlex II Local Anesthetic Bolus (Indicate Dose Given): Lidocaine used for local infiltration of skin, Injected in 3-5ml increments after negative blood aspiration and Bupivacaine 0.5% Dose:: 15 mL Additives (Indicate Dose Given): Epinephrine to make 1:400,000 (2.5mcg/ml) Dose:: 30 mcg, Decadron Dose:: 2 mg and Precedex Dose:: 20 mcg Ultrasound: Sterile probe cover and gel used Ultrasound Image Saved?: Yes Nerve Stimulator: Not Used Paresthesia: None Procedure Tolerated: No Complications Procedure Outcome: Successful Performed By: Kristin Schwarz Supervised By: Mick Esquivel
--- NOTE | 2021-10-17 11:15 | DI.RAD_ITS ---
Exam(s) XR SHOULDER RT COMPLETE 2+V EXAM: XR SHOULDER RT COMPLETE 2+V CLINICAL HISTORY: Postop TECHNIQUE: COMPARISON: CR XR SHOULDER RT COMPLETE 2+V from 11/01/2020 FINDINGS: Six views were obtained. There is a reverse shoulder prosthesis in position. The components appear well seated. No other significant bony abnormality seen. IMPRESSION: RADIATION DOSE DELIVERED: Total DLP
[2021-10-17] MEDS: Lactated Ringers 1,000 ML 60 ML IV (11:23)
[2021-10-17] MEDS: ceFAZolin 2 GM/50 ML BAG IVPB (12:25)
[2021-10-17] MEDS: Bupivacaine 0.5% Pres-Free W/EPI 10 ML VIAL (12:42)
[2021-10-17] MEDS: VANCOMYCIN 1,000 MG in Normal Saline 250 ML 166.6666 MG IVPB (15:05)
--- NOTE | 2021-10-17 15:34 | PDOC.DSDIS_ITS ---
Discharge Plan Disposition Patient Disposition: HOME Condition: Stable Discharge Details Reason For Visit: Right shoulder surgery Attending Provider: Jim Chauhan Primary Care Provider: Sanchez Vizcarra Home Meds and New Rx's Prescriptions: New naproxen 250 mg tablet 250 - 500 mg PO BID PRNQty: 40 0RF Rx Instructions: take with a meal aspirin 81 mg tablet,delayed release (DR/EC) 81 mg PO DAILY 14 Days Qty: 14 0RF oxycodone 5 mg tablet 5 - 10 mg PO Q4H MDD 30 mg PRN (Reason: moderate to severe pain) Qty: 18 0RF Continued gabapentin 100 mg capsule 200 mg PO BID Qty: 180 3RF tramadol 100 mg tablet extended release 24 hr See Rx Instructions PO .COMPLEX Qty: 56 1RF Rx Instructions: PO; 1-2 tabs a day as needed pain , naproxen sodium [Aleve] 220 mg capsule 220 mg PO BID PRN tamsulosin 0.4 mg capsule 0.4 mg PO DAILY Qty: 90 3RF atorvastatin 20 mg tablet 20 mg PO DAILY Qty: 90 3RF oxybutynin chloride 5 mg tablet 5 mg PO DAILY Qty: 90 3RF amlodipine [Norvasc] 10 mg tablet 10 mg PO DAILY Qty: 90 3RF omeprazole 20 mg capsule,delayed release(DR/EC) 20 mg PO DAILY Qty: 90 4RF Discharge Instructions Additional Instructions: Surgery: Right reverse total shoulder arthroplasty with biceps tenodesis Activity: Do not lift anything heavier than a coffee. You should keep your arm at your side in a neutral position at all times except for gentle range of motion exercises, physical therapy, and essential activities. You should use the sling whenever you are out of the house. You may have to adjust the abduction pillow or remove it for comfort. At home it is best to remove the sling and rest the arm on a pillow at your side or support the operative side with your other hand. A physical therapy prescription will be sent electronically to start in 2-3 weeks. Reverse TSA Protocol: Postoperative Weeks 0-6 ?Immobilization: Sling may be removed for therapeutic exercises, resting in bed or chair, and bathing ?Motion exercises: Pendulum exercises, elbow range- of-motion exercises, wrist [id number] exercises, and compactor driver strengthening ?Restrictions: No active internal rotation or backwards extension Postoperative Weeks 6-12 ?Immobilization: Sling discontinued ?Motion exercises: Shoulder passive range of motion, advancing to active- assisted range of motion, and finally active range of motion with a goal of forward flexion to 90? and external rotation of 20? ?Strengthening exercises: Light, resisted forward flexion, external rotation, and abduction limited to isometric exercises and therapy bands with concentric motions only. Continue compactor driver strengthening ?Restrictions: No resisted internal rotation or backwards extension. No scapular retraction exercises with therapy bands Postoperative Months 3-12 ?Motion exercises: Increase [id number] exercises to achieve full motion, with passive stretching at end ranges ?Strengthening: Begin resisted, internal rotation and backwards extension initially with isometric exercises advancing to light therapy bands and then weights. Advance other shoulder strengthening exercises to include the rotator cuff, deltoid, and scapular stabilizers. Advance to functional strengthening, including plyometric exercises and core strengthening. Prescriptions: Aspirin 81 mg take 1 daily to prevent a blood clot for 2 weeks Naproxen 250 mg take 1-2 every 12 hours with a meal as needed for moderate pain Oxycodone 5 mg take 1-2 every 4-6 hours as needed for severe pain You may use [id number] Tylenol (acetaminophen) as needed for mild pain. These pain medications may be taken all at once or in different combinations as needed. Also, recommend Colace (docusate) as a stool softener as surgery and pain medicine cause constipation. Dressings: Leave dressing in place until follow-up. Keep clean and dry at all times. No showers please. Follow-up: 10-[address] Chauhan Please call the office during business hours with any questions or concerns. Let us know right away if you develop any redness, drainage, fevers, chest pain, or trouble breathing. Do not drink alcohol or drive for at least 24 hours after anesthesia. Referrals: Jim Chauhan MD [ [facility] STAFF PHYSICIAN] - Discharge Orders Discharge Orders: Discharge Order (Routine); Ordered 10/17/21 Ordered By: Jim Chauhan DS: Diagnosis Discharge Diagnosis (1) Rotator cuff tear arthropathy of right shoulder: Status: Acute (2) Tendonitis of long head of biceps brachii of right shoulder: Status: Acute
--- NOTE | 2021-10-17 15:39 | ROE_ITS ---
Date of service: 10/17/21 Time of Service: 13:00 Operative Note Operative Note DATE OF PROCEDURE: 10/17/21 PRE-OP DIAGNOSIS: Right: 1. Rotator cuff arthropathy 2. Long head of the biceps tendinopathy POST-OP DIAGNOSIS: same PROCEDURE: Right: 1. Reverse total shoulder arthroplasty, CPT # 08592 2. Open biceps tenodesis, CPT # 22163 The speech and language assistant was medically required as this procedure involves retraction, protection of neurovascular structures, and manipulation of multiple instruments and implants at the same time, which cannot be done without a skilled speech and language assistant. SURGEON: Jim Chauhan HANDBOOK WRITER: Jackie Jameson ANESTHESIA TYPE: General LMA/ETT and Primary Nerve Block Refer to Anesthesia Record ESTIMATED BLOOD LOSS: 250 COMPLICATIONS: None Patient was transported to: PACU Implants: [employer] modular glenoid system baseplate 24 mm [employer] modular glenoid system central screw 25 mm [employer] modular glenoid system peripheral locking screws 32 mm inferior, 28 mm superior, 16 mm posterior, 16 mm anterior [employer] modular glenoid system glenosphere 39+4 mm lateralized [employer] humeral stem 135 degrees size 10 [employer] suture cup size 39 posterior offset [employer] spacer size 39 +6 mm [employer] humeral insert size 39 +3 mm Indications: Please see complete medical record for details. Findings: Significant long head biceps tenosynovitis, anterior capsular contracture, high?grade tearing supraspinatus, and glenohumeral cartilage loss. Procedure Description: In the operating room, general anesthesia was induced. The patient was positioned beachchair on the operating room table. All bony prominences were well-padded. Preoperative antibiotics were administered. The shoulder was prepped and draped in the usual sterile fashion for shoulder arthroplasty. The correct patient, procedure, and side of the procedure were all verified prior to incision. The deltopectoral approach was taken to the anterior shoulder. Care was taken to bluntly dissect the interval between the deltoid and pectoralis major muscles and to identify the cephalic vein within its fat stripe. The the vein was mobil ized laterally with the deltoid although there was significant muscular branches that had to be coagulated about its course. Subdeltoid space and conjoined tendon were freed of adhesions. The long head of the biceps tendon was identified just lateral to the lesser tuberosity. The uppermost margin of the pectoralis major tendon was released from the proximal humerus. The long head of the biceps tendon was tenodesed in situ using SutureTape in a rbpxfj-ru-iiyhn fashion securing it superior margin the pectoralis major tendon. The biceps tendon was amputated and followed proximally to identify the rotator interval. A subscapularis peel was performed taking care to release the entire tendon in a full-thickness fashion from superior to inferior and lateral to medial while bringing the arm gradually into external rotation. Care was taken to avoid the axillary nerve by only working on the bone inferiorly and medially. The subscapularis was tagged using SutureTape in a Mike-Zain fashion and traction used confirm appropriate mobilization of the subscapularis tendon after gentle blunt dissection was used to free up the space anterior and posterior to it. The supraspinatus remnant was debrided off the greater tuberosity to the level of a stable posterior superior rotator cuff. Appropriate coagulation was achieved especially interiorly. The surgical neck was cut using an oscillating saw with the humeral head bone brought back table in case there was a need for future bone grafting. The proximal humeral protection plate was used to provisionally confirm suture cup and glenosphere size and gently impacted over the bone cut. Attention was then turned to the glenoid and retractors were placed and a circumferential release performed using the long head of the biceps remnant to remove soft tissue about the glenoid rim. The axillary nerve was palpated but not exposed inferior and traversing from beneath the subscapularis tendon appropriately below the scapular neck heading posteriorly. Care was taken inferiorly to work on bone only between 5 and 7:00 o'clock and bluntly elevate tissues inferiorly. The VIP guide was placed on the glenoid and used to confirm placement and trajectory of the central guidepin. The guidepin was inserted and advanced just through the far cortex ensuring adequate central screw length. Depth gauge was used to confirm length. The glenosphere sizer was used to confirm positioning and glenosphere size. The backside of the baseplate reamer and underside of glenosphere reamers were then used. There was appropriate eccentric reaming inferiorly and anteriorly. The 10 mm central screw drill followed by appropriate tap were then used. The baseplate was screwed and fully compressed onto the glenoid surface. The locking guide was then used to drill and place appropriately length inferior, superior, anterior, and posterior screws. The autg-zyg-wxszdfsja reamer was used to confirm adequate peripheral reaming. The glenosphere was applied with the farm helper and then impacted to engage the Gaviria taper. It was then locked with appropriate countersinking of the setscrew. The glenosphere was inspected and found to have good fit, appropriate positioning, and no soft tissue or bony impingement. Attention was then turned back to the proximal humerus, which was delivered from the wound and maintained in external rotation. Reamers were started appropriately posterior to the bicipital groove taking care to maintain in line approach with the humeral canal. Sequential reaming was done from size 5 up to size 8. Next, the broaches were sequentially used to open the proximal humerus starting with a size 5 and going up to size 10 and sunk to the appropriate depth while maintaining approximately about 20 degrees retroversion. There was good metaphyseal fit and rotational control of the proximal humerus with this size. The posterior offset guide was used to ream for the suture cup. The humeral trial cup was connected. Trialing was commenced with +3 mm liner. The shoulder was reduced and taken through range of motion. Trial components were built up to +6 mm spacer and +3 mm liner in order to achieve good stability and appropriate tension on the deltoid and conjoined tension. The trial components were removed from the proximal humerus. The wound was copiously irrigated with normal saline. A 2 mm drill was used to drill 2 drill holes in the bicipital groove for later subscapularis repair. The the proximal humeral stem and suture cup were assembled and brought over the proximal humerus. Suture tapes were placed superiorly and inferiorly and the medial and lateral aspect of the suture cup. The lateral tapes were brought out the drill holes. A small amount of vancomycin powder was distributed in the proximal humerus. The humeral component and suture cup were impacted into place. The trial spacer and liner were added, and the shoulder was reduced and range of motion, stability, and tension confirmed to be appropriate. The final spacer and liner were then connected, and range of motion, stability, and tension confirmed. The shoulder was copiously irrigated with Betadine and normal saline. V ancomycin powder was distributed deeply about the shoulder and through subcutaneous tissues. The arm was placed in about 30 degrees of external rotation. The subscapularis was reduced and repaired using the suzan of StureTape in a speed bridge type configuration. The arm was taken into more external rotation without any displacement of the subscapularis repair. The deltopectoral interval was well approximated. Subcutaneous tissue was irrigated then closed using 2-0 Monocryl in a buried interrupted fashion. Skin was closed using 3-0 Monocryl in a buried subcuticular fashion. Skin glue was applied to the incision. A silver impregnated bandage was placed over the incision. The extremity was placed into a shoulder immobilizer. The patient awoke from anesthesia without complication and was taken to the recovery room in stable condition.
--- NOTE | 2021-10-17 16:31 | W.ANESPOSTOP ---
Postoperative Evaluation Date, Time and Location Date Performed: 10/17/21 Time Performed: 16:10 Patient Location: PACU Vital Signs Most Recent Imported Vital Signs: Most Recent Vital Signs Temp Pulse Resp BP Pulse Ox 36.3 C L 59 L 25 H 124/64 93 10/17/21 16:02 10/17/21 16:02 10/17/21 16:02 10/17/21 16:02 10/17/21 16:02 Pain Score Most Recent Pain Score: Most Recent Pain Score Pain Level 1 10/17/21 16:02 Assessment Mental Status: Awake (Alert & Oriented to Patient Baseline) Airway and Respiratory Function: Patent airway with normal (patient baseline) respiratory exam Cardiovascular Function: Hemodynamically Stable Hydration Status: Adequately Hydrated Nausea & Vomiting: No Nausea or Vomiting Pain: Pt. Denies Any Pain Peripheral Nerve Block: Regional nerve block not resolved at time of post operative discharge
== END 2021-10-17 17:29 | disposition home or self-care (01) ==
PROVIDERS: PCP Nurse Practitioner Family; Visit Provider Student in an Organized Health Care Education/Training Program
PROC: (CPT 23472; principal; 2021-10-17 12:00)
DX: M75.101 Unspecified rotator cuff tear or rupture of right shoulder, not specified as traumatic (principal); M75.21 Bicipital tendinitis, right shoulder; M24.511 Contracture, right shoulder
CPT/HCPCS: 23472; 23430; 76942; 73030; C1781; J0171; J0690; J1100; J2370; J2405

== ENCOUNTER 2021-10-30 10:45 | Outpatient (CLI) | payer BC, SELFPAY ==
--- NOTE | 2021-10-30 10:15 | DI.RAD_ITS ---
Exam(s) XR SHOULDER RT COMPLETE 2+V EXAM: XR SHOULDER RT COMPLETE 2+V CLINICAL HISTORY: rct f/u. TECHNIQUE: 2D digital imaging was performed. Two images were obtained. AP and Y views were obtained . COMPARISON: CR XR SHOULDER RT COMPLETE 2+V from 10/17/2021 FINDINGS: BONES: There are stable post operative changes present. No fracture or dislocation. JOINTS: The orthopedic hardware is in good position. SOFT TISSUE: Normal. IMPRESSION: Stable postoperative changes. DATA REPOSITORY: RADIATION DOSE DELIVERED:
== END 2021-10-30 10:46 | disposition home or self-care (01) ==
LOC: DIORS 10:46
PROVIDERS: PCP Nurse Practitioner Family; Referring Provider Nurse Practitioner Family; Visit Provider Student in an Organized Health Care Education/Training Program
DX: M25.511 Pain in right shoulder; M12.811 Other specific arthropathies, not elsewhere classified, right shoulder; M75.101 Unspecified rotator cuff tear or rupture of right shoulder, not specified as traumatic; Z98.890 Other specified postprocedural states
CPT/HCPCS: 73030

== ENCOUNTER 2021-12-11 10:46 | Outpatient (CLI) | payer MEDICARE, BC, SELFPAY ==
--- NOTE | 2021-12-11 10:00 | DI.RAD_ITS ---
Exam(s) XR SHOULDER RT COMPLETE 2+V EXAM: XR SHOULDER RT COMPLETE 2+V INDICATION: right shoulder f/u. COMPARISON: CR XR SHOULDER RT COMPLETE 2+V from 10/30/2021 TECHNIQUE: 2D digital imaging was performed. Two views. FINDINGS: There is been no change in the reverse shoulder prosthesis or appearance of the surrounding bone. DATA REPOSITORY: RADIATION DOSE DELIVERED:
== END 2021-12-11 10:47 | disposition home or self-care (01) ==
LOC: DIORS 10:46
PROVIDERS: PCP Nurse Practitioner Family; Referring Provider Nurse Practitioner Family; Visit Provider Student in an Organized Health Care Education/Training Program
DX: M75.21 Bicipital tendinitis, right shoulder (principal); M75.101 Unspecified rotator cuff tear or rupture of right shoulder, not specified as traumatic; M12.811 Other specific arthropathies, not elsewhere classified, right shoulder; G89.4 Chronic pain syndrome
CPT/HCPCS: 73030

== ENCOUNTER 2021-12-19 02:42 | Outpatient (CLI) | payer MEDICARE, BC, SELFPAY ==
[2021-12-19 12:42] LABS: FREE T4 1.11 ng/dL (0.76-1.46); TSH 1.44 uIU/mL (0.36-3.74)
== END 2021-12-19 02:43 | disposition home or self-care (01) ==
LOC: LOS 02:42
PROVIDERS: PCP Nurse Practitioner Family; Visit Provider Nurse Practitioner Family
DX: R53.83 Other fatigue (principal)
CPT/HCPCS: 36415; 84439; 84443

== ENCOUNTER 2022-01-10 01:00 | Outpatient (CLI) | payer MEDICARE, BC, SELFPAY ==
[2022-01-10 08:13] LABS: Source Nasal/Nares
[2022-01-10 09:10] LABS: COVID-19 PCR Negative (Negative)
== END 2022-01-10 01:01 | disposition home or self-care (01) ==
LOC: LBO 01:01
PROVIDERS: PCP Nurse Practitioner Family; Visit Provider Ophthalmology
DX: Z20.822 Contact with and (suspected) exposure to COVID-19 (principal); Z01.818 Encounter for other preprocedural examination
CPT/HCPCS: 87635

== ENCOUNTER 2022-01-13 10:09 | Day surgery (SDC) | payer MEDICARE, BC, SELFPAY ==
[2022-01-13] VITALS (7 sets, daily range): BP systolic 128–173; BP diastolic 55–87; PULSE 42–54; RESP 12–16; TEMP 36–36.4; O2SAT 93–99; BMI 34.2
[2022-01-13] MEDS: Tropicam./Phenyleph. (1/2.5%) 5 ML BTL OD ×3 (11:04→11:20)
[2022-01-13] MEDS: Lactated Ringers 1,000 ML 80 ML IV (11:06)
--- NOTE | 2022-01-13 11:19 | ANES.PREOP_ITS ---
General Info Date of Service Date Performed: 01/13/22 Height: 5 ft 8 in Weight: 102 kg Body Mass Index (BMI): 34.2 Surgical Procedure: Operation Date: 01/13/22 13:40 Proposed Procedure Side Surgeon p Cataract Extraction with IOL Implant Right Faraz Alexandra MD Meds Allergies and Home Medications Allergies Allergy/AdvReac Type Severity Reaction Status Date / Time No Known Allergies Allergy Verified 01/13/22 10:54 Home Medication Medication Instructions Recorded tamsulosin 0.4 mg capsule 0.4 mg PO DAILY #90 caps 03/18/21 oxybutynin chloride 5 mg tablet 5 mg PO DAILY #90 tabs 08/27/21 naproxen sodium 220 mg capsule 220 mg PO BID PRN 09/17/21 (Aleve) omeprazole 20 mg capsule,delayed 20 mg PO DAILY #90 caps 10/07/21 release atorvastatin 20 mg tablet 20 mg PO DAILY #90 tabs 10/29/21 gabapentin 100 mg capsule 200 mg PO BID #360 caps 10/29/21 acetaminophen 325 mg capsule 325 mg PO ONCE PRN 12/11/21 (Tylenol) losartan 25 mg tablet 25 mg PO DAILY #30 tabs 12/13/21 tramadol 100 mg tablet,extended 100 mg PO DAILY #30 tabs 01/02/22 release 24 hr Current Visit Medications: Current Medications Generic Name Dose Route Start Last Admin Trade Name Freq PRN Reason Stop Dose Admin Acetaminophen 1,000 mg 01/13/22 06:00 Acetaminophen 500 Mg Tab PO Q4H PRN PRN Ringer's Solution 1,000 mls @ 80 mls/hr 01/13/22 06:00 01/13/22 11:06 IV 02/09/22 23:59 80 mls/hr INFUSION GABINO Administration IV Miscellaneous Supplies 1 each 01/13/22 06:00 Iv Access IV 02/09/22 23:59 DIRECTED GABINO Miscellaneous Medication 0 ml 01/13/22 06:00 Prednisolone 1%, Moxifloxacin 0.5%, Nepafenac 0.1% 5ml Btl OD DIRECTED GABINO Miscellaneous Medication 0 ml 01/13/22 06:00 01/13/22 11:15 Tropicam./Phenyleph. 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 Prostate cancer C61 Angiodysplasia of colon K55.20 Hyperlipidemia E78.5 Hypertension I10 Ankylosing spondylitis M45.9 HLA B27 (HLA B27 positive) Z15.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 Essential tremor G25.0 Atrial fibrillation I48.91 Presence of Watchman left atrial appendage closure device Z95.818 Peripheral neuropathy G62.9 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 Constipation K59.00 Pedal edema R60.0 Rotator cuff tear arthropathy of right shoulder M75.101, M12.811 Chronic pain syndrome G89.4 Type 2 diabetes mellitus with diabetic nephropathy E11.21 Fatigue R53.83 Hernia of abdominal wall K43.9 Medical History Medical History (Updated 01/13/22 @ 11:37 by Faraz Alexandra MD) GERD (gastroesophageal reflux disease) patient denies History of ETOH abuse History of lower GI bleeding Overactive bladder Tendonitis of long head of biceps brachii of right shoulder Medical History Comments:: Chronic pain, marijauna daily Surgical History Surgical History History of total right hip replacement Status post cardiac surgery Watchmen Tobacco Smoking/Tobacco Use Status: Former Tobacco Use Passive smoking exposure: Yes Second hand exposure: Yes Alcohol Alcohol Intake: current Alcohol intake frequency: a few times a week Alcohol type: wine Substance Use Substance use: Daily Substance use type: marijuana Vital Signs and Lab Results Vital Signs Most Recent Vital Signs in EMR: Most Recent Vital Signs Temp Pulse Resp BP Pulse Ox 36 C L 54 L 16 171/80 H 98 01/13/22 11:07 01/13/22 11:07 01/13/22 11:07 01/13/22 11:07 01/13/22 11:07 Lab Results Blood Type / Crossmatch: No Data to Display Complete Blood Count: No Data to Display Complete Metabolic Panel: No Data to Display Liver Function Panel: No Data to Display Coagulation Panel: No Data to Display Cardiac Panel: No Data to Display Arterial Blood Gas: No Data to Display Venous Blood Gas: No Data to Display Pancreas Panel: No Data to Display Thyroid Panel: Thyroid Stimulating Hormone (TSH) 1.44 uIU/mL (0.36-3.74) 12/19 10:01 Infectious Disease: Coronavirus (COVID-19)(PCR) Negative (Negative) 01/10/22 08:00 Coronavirus 2019 Source Nasal/Nares 01/10/22 08:00 Blood Cultures: No Data to Display Toxicology Panel: No Data to Display Imaging and Studies Imaging and Studies Study information below may be from another EMR and interpreted by another provider. Please see original notes in EMR for more complete details. EKG Summary: 01/2020: a fib, LAD, nonspecific t abnormalities lateral leads. Echocardiogram Summary: 01/2020: LVEF 62%, moderate biatrial enlargement. no hem odynamically significant valve disease. mild MR, trace TR, trace AR. Anesthesia Assessment and Plan Anesthesia History Personal History: No History of Anesthesia Complications Family History: No Family History of Anesthesia Complications Exercise Tolerance Exercise Tolerance: Metabolic Equivalents>4 Pertinent Negatives Pertinent Negatives: No Symptoms of GERD Cardiac & Pulmonary Exam Cardiac Exam: Normal S1/S2 Heart Sounds Pulmonary Exam: Clear Bilateral Breath Sounds Implantable Cardiac Device Does patient have a Pacemaker or an ICD?: No Airway Exam Known Difficult Airway: No Mallampati Class: 2 Mouth Opening: Normal (> 3cm) Thyromental Distance: Greater than 3 cm Neck Range of Motion: Limited ROM Neck Circumference: Normal Teeth Condition: Generalized Poor Dentition Airway Comments: Missing some teeth 48 to 44' 38 to 35 11' 18 to 15 and 28 to 25 ASA Classification ASA Score: ASA 3 Emergency Case?: No NPO Status NPO Status: NPO Clears >2 hours, Solids >8 hours Anesthesia Plan Resuscitation Status: Full Code Anesthesia Technique: General Anesthesia Airway Planned: Endotracheal Tube Monitors Used: Standard Monitors Preoperative Comments:: Sig PMHx: DM2 (last A1c 6.8%), HTN (amlodipine), ankylosing spondylitis, chronic pain, afib (watchman 2019, no anticoagulation), GERD (omeprazole), prostate CA (radiation, obstruction - Tamsulosin/oxybutynin) , spinal stenosis (lami L3,4,5), former smoker. Previous Anes: Mac 4 grade 2a maskable with OPA (2021).
[2022-01-13] MEDS: Tetracaine 0.5% 4 ML BTL OD (11:56)
[2022-01-13] MEDS: Lidocaine 2% Jelly 6 ML SYR (11:58)
[2022-01-13] MEDS: Balanced Salt Soln.-PLUS 500 ML BAG (12:03)
[2022-01-13] MEDS: Lidocaine 1% Pres-Free 5 ML VIAL (12:04)
[2022-01-13] MEDS: Povidone-Iodine Ophth 30 ML BTL (12:05)
[2022-01-13] MEDS: Triamcinolone 40 MG/ML VIAL (12:06)
--- NOTE | 2022-01-13 12:19 | W.PM.DSUDISC ---
Discharge Plan Disposition Patient Disposition: HOME Condition: Good Discharge Details Attending Provider: Faraz Alexandra Primary Care Provider: Sanchez Vizcarra Home Meds and New Rx's Prescriptions: No Action naproxen sodium [Aleve] 220 mg capsule 220 mg PO BID PRN acetaminophen [Tylenol] 325 mg capsule 325 mg PO ONCE PRN losartan 25 mg tablet 25 mg PO DAILY Qty: 30 0RF atorvastatin 20 mg tablet 20 mg PO DAILY Qty: 90 3RF gabapentin 100 mg capsule 200 mg PO BID Qty: 360 3RF tramadol 100 mg tablet extended release 24 hr 100 mg PO DAILY Qty: 30 3RF tamsulosin 0.4 mg capsule 0.4 mg PO DAILY Qty: 90 3RF oxybutynin chloride 5 mg tablet 5 mg PO DAILY Qty: 90 3RF omeprazole 20 mg capsule,delayed release(DR/EC) 20 mg PO DAILY Qty: 90 4RF Discharge Instructions Stand Alone Forms: Post-op Topical Cataract, Mathew Burnham (DSU) Discharge Orders Discharge Orders: Discharge Order (Routine); Ordered 01/13/22 Ordered By: Faraz Alexandra DS: Diagnosis Discharge Diagnosis (1) Posterior subcapsular age-related cataract, right eye: Status: Resolved (2) Nuclear sclerotic cataract of right eye: Status: Resolved (3) Cortical cataract of right eye: Status: Resolved
--- NOTE | 2022-01-13 12:20 | W.PM.OP ---
Date of service: 01/13/22 Time of Service: 12:20 Operative Note Operative Note DATE OF PROCEDURE: 01/13/22 PRE-OP DIAGNOSIS: Nuclear/cortical/posterior subcapsular cataract, right eye POST-OP DIAGNOSIS: same PROCEDURE: Cataract extraction using phacoemulsification with intraocular lens implant, right eye SURGEON: Faraz Alexandra ANESTHESIA TYPE: Local By Surgeon and General LMA/ETT Refer to Anesthesia Record ESTIMATED BLOOD LOSS: 0 PATHOLOGY: none sent COMPLICATIONS: None Patient was transported to: same day Patient's condition: stable Implants: [employer]/MAXX [employer]ecnis [id number] Indications: Progressive visual loss due to cataract, right eye Procedure Description: CATARACT SURGERY OPERATIVE REPORT PREOPERATIVE DIAGNOSIS: 1. Nuclear/cortical/posterior subcapsular cataract, right eye POSTOPERATIVE DIAGNOSIS: Same OPERATION: 1. Cataract extraction using phacoemulsification with posterior chamber intraocular lens implant, right eye. IOL: IOL Technology Risk Intern/Model: [employer] / [employer]XX [employer]ecnis [id number] IOL Power: + 21.0 diopters IOL Serial Number: [id number] Optic Diameter: 6.0mm Haptic/Overall Diameter: 13.0mm PHACO INFO: [employer] Vision System with OZil and Active Fluidics Cumulative Dispersed Energy (CDE): 16.94 seconds SURGEON: Faraz Alexandra MD, ANDREA ANESTHESIA: General/endotracheal anesthesia, with local sub-tenon's anesthetic infiltration COMPLICATIONS: None SPECIMENS: None INDICATIONS FOR PROCEDURE: The patient is a 76-year-old gentleman with history of ankylosing spondylitis and uveitis who has developed a significant nuclear cataract of the right eye. He has previously undergone cataract surgery in the left eye many years ago, under general anesthesia due to his inability to lie flat. The option of cataract surgery in the right eye was offered to the patient and he wished to proceed. PROCEDURE: The correct surgical eye was identified and marked as the right eye and the pupil was dilated in the preoperative area using mydriatics and cycloplegics. The dilated pupil size was 6.5 mm. The patient was brought to the operating room where cardiopulmonary monitoring was instituted and surgical time-out was performed, confirming the correct operative eye and IOL power. General/endotracheal anesthetic was instituted. Topical anesthesia was administered and ophthalmic povidone-iodine 5% was instilled into the conjunctival fornices. Lidocaine gel was applied to the cornea and the alie-ocular area was prepped with Betadine 10% solution and draped in the usual sterile fashion for intraocular surgery, including an aperture drape. A Tegaderm transparent film dressing was cut in half and used to cover the lashes and lid margins. Care was taken to sequester the lashes and lid margins under the Tegaderm dressing. A lid speculum was placed between the lids of the operative eye and the Juan [employer] operating microscope was maneuvered into position. Indira scissors were then used to make a conjunctival buttonhole approximately 6mm posterior to the limbus in the inferonasal quadrant. Blunt dissection was carried out to expose bare sclera, and a blunt-tipped sub-tenon?s anesthesia cannula was introduced and passed posteriorly along the globe where non-preserved plain lidocaine was injected into posterior sub-Tenon?s space. A sideport knife was used to make a paracentesis port inferotemporally. Intraocular phenylephrine/lidocaine was injected into the anterior chamber. The anterior chamber was filled with viscoelastic. A keratome knife was used to construct a 2-plane near-clear corneal tunnel extending 2.0mm into clear cornea superiortemporally. A flap was raised on the anterior capsule and capsulorhexis forceps were used to complete a continuous curvilinear capsulorhexis of 5.0 mm. Balanced salt solution was then used to perform cortical cleaving hydrodissection and nuclear hydrodelineation until the lens could be freely rotated within the capsular bag. The lens nucleus was then disassembled and removed within the capsular bag and iris plane using phacoemulsification. Residual cortical material was removed using the I/A handpiece. The posterior capsule was carefully polished to remove as much residual lens epithelial cells as safely possible. The capsular bag was then inflated and the anterior chamber deepened with viscoelastic. The lens implant described above was inserted into the capsular bag using the MAXX [place] Injector. A Kuglen hook was used to dial the IOL into position. Residual viscoelastic was then removed first from posterior to the IOL, then from the anterior chamber using the I/A handpiece. The lens implant was noted to center nicely within the capsular bag. The incisions were stromally hydrated, and the anterior chamber was reformed using BSS. Then 0.5cc of moxifloxacin 1.0mg/ml were injected into the capsular bag and anterior chamber. The incisions were checked with a Weck spear and found to be secure. At the conclusion of the procedure, Kenalog 20 mg in 0.5 cc were injected into posterior sub-tenon's space using the sub-tenon's anesthetic injection cannula. Several drops of ophthalmic povidone-iodine 5% were then applied to the eye followed by two drops of Imprimis combination prednisolone/moxifloxacin/nepafenac solution. The drapes were removed and a clear plastic protective eye shield was placed over the eye. The patient was then returned to Same Day Surgery in stable condition.
--- NOTE | 2022-01-13 13:35 | W.ANESPOSTOP ---
Postoperative Evaluation Date, Time and Location Date Performed: 01/13/22 Time Performed: 13:15 Patient Location: Day Surgery Unit Vital Signs Most Recent Imported Vital Signs: Most Recent Vital Signs Temp Pulse Resp BP Pulse Ox 36.4 C L 45 L 15 171/68 H 98 01/13/22 12:35 01/13/22 12:50 01/13/22 12:50 01/13/22 12:50 01/13/22 12:50 Pain Score Most Recent Pain Score: Most Recent Pain Score Pain Level 0 01/13/22 12:50 Assessment Mental Status: Awake (Alert & Oriented to Patient Baseline) Airway and Respiratory Function: Patent airway with normal (patient baseline) respiratory exam Cardiovascular Function: Hemodynamically Stable Hydration Status: Adequately Hydrated Nausea & Vomiting: No Nausea or Vomiting Pain: Pt. Denies Any Pain Peripheral Nerve Block: Patient did not receive a nerve block
== END 2022-01-13 14:00 | disposition home or self-care (01) ==
LOC: SUR 10:10
PROVIDERS: PCP Nurse Practitioner Family; Visit Provider Ophthalmology
PROC: (CPT 66984; principal; 2022-01-13 13:30)
DX: H25.041 Posterior subcapsular polar age-related cataract, right eye (principal)
CPT/HCPCS: 66984; V2632; J1100; J2405; J2704

== ENCOUNTER 2022-02-12 11:10 | Outpatient (CLI) | payer MEDICARE, BC, SELFPAY ==
--- NOTE | 2022-02-12 10:00 | DI.RAD_ITS ---
Exam(s) XR SHOULDER RT COMPLETE 2+V EXAM: XR SHOULDER RT COMPLETE 2+V CLINICAL HISTORY: right shoulder f/u. TECHNIQUE: 2D digital imaging was performed. Two images were obtained. AP and Y-view views were obt ained. COMPARISON: CR XR SHOULDER RT COMPLETE 2+V from 12/11/2021 FINDINGS: BONES: There are stable post operative changes present. No fracture or dislocation. JOINTS: The orthopedic hardware is in good position. Degenerative changes are seen at the acromiocla vicular joint. SOFT TISSUE: Normal. IMPRESSION: Stable postoperative changes. DATA REPOSITORY: RADIATION DOSE DELIVERED:
== END 2022-02-12 11:11 | disposition home or self-care (01) ==
LOC: DIORS 11:10
PROVIDERS: PCP Nurse Practitioner Family; Referring Provider Nurse Practitioner Family; Visit Provider Student in an Organized Health Care Education/Training Program
DX: M12.811 Other specific arthropathies, not elsewhere classified, right shoulder (principal); M75.101 Unspecified rotator cuff tear or rupture of right shoulder, not specified as traumatic; M75.21 Bicipital tendinitis, right shoulder; G89.4 Chronic pain syndrome
CPT/HCPCS: 99213; 73030

== ENCOUNTER 2022-03-03 02:48 | Outpatient (CLI) | payer MEDICARE, BC, SELFPAY ==
[2022-03-03 13:00] LABS: HCT 36.5 % (40.0-50.0); HGB 10.8 g/dL (13.5-17.5); MCHC 29.6 % (32.0-36.0); MCV 78 fL (80-95); MPV 10.7 fL (8.0-11.0); Platelet Count 276 10^3/uL (130-400); RDW 16.4 % (11.8-14.1); RDW-SD 46.5 fL
[2022-03-03 13:11] LABS: ALT 28 U/L (16-63); Anion Gap 9.2 mmol/L (3-11); BUN 20 mg/dL (7-18); CO2 25.8 mmol/L (21.0-32.0); CREATININE 1.2 mg/dL (0.70-1.30); Calcium 8.7 mg/dL (8.5-10.1); Calculated LDL 46 mg/dL (<100); Chloride 103 mmol/L (98-107); Cholesterol 120 mg/dL (<200); Estimated GFR 63.46 (mL/min/1.73m2); Glucose 107 mg/dL (74-106); HDL Cholesterol 55 mg/dL (40-60); Potassium 4.1 mmol/L (3.5-5.1); Sodium 138 mmol/L (136-145); Triglyceride 99 mg/dL (<150)
[2022-03-03 14:29] LABS: COMMENT (LAB VIEW ONLY) 104.56 mg/dL; Microalb ug/mg Crea 248.9 ug/mg Cr
[2022-03-03 21:42] LABS: CRP, High Sensitivity 5.09 mg/L (See Note)
[2022-03-03 22:34] LABS: PSA, Diagnostic <0.1 ng/mL (<=6.5)
[2022-03-04 10:07] LABS: HIV-1/2 Ag & Ab Screen Negative (Negative)
== END 2022-03-03 02:49 | disposition home or self-care (01) ==
PROVIDERS: Family Medicine; PCP Nurse Practitioner Family; Visit Provider Nurse Practitioner Family
DX: I10 Essential (primary) hypertension (principal); E11.21 Type 2 diabetes mellitus with diabetic nephropathy; R61 Generalized hyperhidrosis; C61 Malignant neoplasm of prostate; Z11.4 Encounter for screening for human immunodeficiency virus [HIV]
CPT/HCPCS: 36415; 80048; 80061; 85027; 86141; 87389; 82043; 82570; 84153; 84460

== ENCOUNTER 2022-03-26 02:19 | Outpatient (CLI) | payer MEDICARE, BC, SELFPAY ==
[2022-03-27 10:28] LABS: Lyme Ab w Rflx to Lyme Confirm Negative (Negative)
[2022-03-28 22:11] LABS: Anaplasma phagocytophilum Negative (Negative); B. miyamotoi PCR Negative (Negative); Babesia divergens/MO-1 Negative (Negative); Babesia duncani Negative (Negative); Babesia microti Negative (Negative); Ehrlichia chaffeensis Negative (Negative); Ehrlichia ewingii/canis Negative (Negative); Ehrlichia muris eauclairensis Negative (Negative)
== END 2022-03-26 02:20 | disposition home or self-care (01) ==
LOC: LOS 02:19
PROVIDERS: PCP Nurse Practitioner Family; Visit Provider Nurse Practitioner Family
DX: G89.4 Chronic pain syndrome (principal)
CPT/HCPCS: 87798; 86618

== ENCOUNTER → 2022-04-03 08:20 | Outpatient (BNVA) | payer MEDICARE, BC, SELFPAY | PROVIDERS: PCP Nurse Practitioner Family; Referring Provider Nurse Practitioner Family; Visit Provider Psychiatry & Neurology Neurology | DX: E11.42 Type 2 diabetes mellitus with diabetic polyneuropathy (principal); Z79.891 Long term (current) use of opiate analgesic; G89.29 Other chronic pain; G47.00 Insomnia, unspecified; R35.1 Nocturia; R61 Generalized hyperhidrosis; R41.3 Other amnesia; G25.0 Essential tremor | CPT/HCPCS: 99215 ==

== ENCOUNTER → 2022-04-16 10:30 | Outpatient (BNVA) | payer MEDICARE, BC, SELFPAY | PROVIDERS: PCP Nurse Practitioner Family; Referring Provider Nurse Practitioner Family; Visit Provider Student in an Organized Health Care Education/Training Program | DX: M75.21 Bicipital tendinitis, right shoulder (principal); M75.101 Unspecified rotator cuff tear or rupture of right shoulder, not specified as traumatic; M12.811 Other specific arthropathies, not elsewhere classified, right shoulder; G89.4 Chronic pain syndrome | CPT/HCPCS: 99213 ==

== ENCOUNTER 2022-06-23 02:55 | Outpatient (CLI) | payer MEDICARE, BC, SELFPAY | END 2022-06-23 02:56 | disposition home or self-care (01) | LOC: LBO 02:55 | PROVIDERS: PCP Nurse Practitioner Family; Visit Provider Nurse Practitioner Family | DX: R35.0 Frequency of micturition (principal); C61 Malignant neoplasm of prostate | CPT/HCPCS: 36415 ==

== ENCOUNTER 2022-06-23 15:06 | Outpatient (REF) | payer MEDICARE, BC, SELFPAY ==
[2022-06-23 12:31] LABS: Vitamin B12 486 pg/mL (193-986)
[2022-06-23 14:30] LABS: CREATININE 1.3 mg/dL (0.70-1.30); Estimated GFR 57.29 (mL/min/1.73m2)
[2022-06-24 11:06] LABS: PSA, Ultrasensitive <0.01 ng/mL (<= 6.5)
[2022-06-24 16:08] LABS: Albumin 52.8 % (55.8-66.1); Total Protein 7.6 g/dL (6.3-8.2)
[2022-06-27 11:35] LABS: Testosterone, Total 28 ng/dL (240-950)
== END 2022-06-23 15:07 | disposition home or self-care (01) ==
LOC: LBN 15:06
PROVIDERS: Nurse Practitioner Gerontology; PCP Nurse Practitioner Family; Visit Provider Nurse Practitioner Adult Health
DX: R26.89 Other abnormalities of gait and mobility (principal); R53.83 Other fatigue; R41.3 Other amnesia; C61 Malignant neoplasm of prostate; R97.20 Elevated prostate specific antigen [PSA]; R31.9 Hematuria, unspecified; G25.0 Essential tremor; G62.9 Polyneuropathy, unspecified
CPT/HCPCS: 84153; 84403; 82565; 82607; 84165

== ENCOUNTER → 2022-07-02 11:12 | Outpatient (BNVA) | payer MEDICARE, BC, SELFPAY | PROVIDERS: PCP Nurse Practitioner Family; Referring Provider Nurse Practitioner Family; Visit Provider Psychiatry & Neurology Neurology | DX: G89.29 Other chronic pain (principal); Z79.891 Long term (current) use of opiate analgesic; R41.3 Other amnesia; G25.0 Essential tremor; G62.9 Polyneuropathy, unspecified | CPT/HCPCS: 99214 ==

== ENCOUNTER 2022-07-04 00:01 | Outpatient (CLI) | payer MEDICARE, BC, SELFPAY ==
--- NOTE | 2022-07-04 07:00 | DI.NM_ITS ---
Exam(s) NM BONE SCAN WHOLE BODY GRP EXAM: NM BONE SCAN WHOLE BODY GRP CLINICAL HISTORY: staging/restaging prostate cancer,C61. TECHNIQUE: Injected Dose: 25 mCi Tc-99m MDP Delayed Images: 2-3 hours. COMPARISON: CR XR SHOULDER RT COMPLETE 2+V from 02/12/2022 FINDINGS: Symmetric axial uptake. Bilateral renal excretion is identified. No focal area of intense suspicious uptake is seen. There are findings of a right shoulder replacement. IMPRESSION: 1. No evidence to suggest metastatic disease. DATA REPOSITORY:
--- NOTE | 2022-07-04 07:00 | DI.CT_ITS ---
Exam(s) CT ABDOMEN PELVIS WO/W EXAM: CT ABDOMEN PELVIS WO/W CLINICAL HISTORY: restaging, prostate cancer,URINARY FREQUENCY,R35.0,C61 TECHNIQUE: Imaging Protocol: Axial computed tomography images with coronal and sagittal reformatted images were created and reviewed CONTRAST MATERIAL: Intravenous: Omnipaque 350 Contrast volume:100 mL Oral: No COMPARISON: CR XR CHEST 2V PA LATERAL from 01/19/2020 FINDINGS: ABDOMEN: Lung Bases: Marked coronary artery calcification is present. Liver: The liver appears slightly of of decreased attenuation. There is a nodular contour of the rachel er raising the question of hepatic cirrhosis. No hepatic mass is identified. No measurable mass. Portal, Superior Mesenteric, and Splenic Veins: Unremarkable. Gallbladder and Biliary Tract: No radiodense calculus or dilation. Pancreas: Normal density, no abnormal calcifications or inflammatory process. Spleen: Normal. Adrenals: No masses seen. Kidneys: Normal size, contour and axis. No radiodense stones or obstructive uropathy. There are bilat eral renal cysts. The largest on the right measures 4.8 x 4.2 cm. The largest on the left measures 2.9 x 2.5 cm. No follow-up is recommended. Abdominal Aorta: Abdominal portion non-dilated. Atherosclerosis is present. Bowel: There is diverticulosis seen in the sigmoid colon but no evidence of acute diverticulitis. Th ere is stool seen throughout the colon suggesting constipation. No evidence of bowel obstruction or inflammation is seen. No evidence of appendicitis. Peritoneal Cavity: No ascites, collection or mesenteric inflammatory response. No free air. Lymph Nodes: Within normal limits. Bones: Within normal limits for the patient's age. The patient has a right total hip replacement. P ostsurgical changes are seen in the lower lumbar spine. No aggressive osseous lesions are identified . Soft Tissues: Unremarkable. PELVIS: Bladder: Symmetric distention, no gross wall thickening. Reproductive Organs: Unremarkable as visualized. Lymph Nodes: Within normal limits. Bones: Within normal limits for the patient's age. IMPRESSION: 1. No evidence of abdominal or pelvic metastatic disease. 2. No acute abdominal or pelvic process. RADIATION DOSE DELIVERED: 4,365.1mGy.cm Total DLP 4,365.1mGy.cm Total DLP DATA REPOSITORY: All CT scans at this facility are submitted to the National Radiology Data Registry (NRDR) Dose Index Registry (DIR) with the [employer] (A[employer]). RADIATION OPTIMIZATION: All CT scans at this facility use at least one of these dose optimization te chniques: automated exposure control; mA and/or kV adjustment per patient size (includes targeted exa ms where dose is matched to clinical indication); or iterative reconstruction.
[2022-07-04] MEDS: Omnipaque 350 MG/ML 100 ML BTL IJ (11:25)
[2022-07-04] MEDS: Normal Saline - Diluent 50 ML VIAL IJ (11:26)
== END 2022-07-04 00:21 ==
LOC: DI 00:01
PROVIDERS: PCP Nurse Practitioner Family; Visit Provider Nurse Practitioner Gerontology
DX: C61 Malignant neoplasm of prostate (principal); R35.0 Frequency of micturition; Z12.89 Encounter for screening for malignant neoplasm of other sites; K76.89 Other specified diseases of liver; N28.1 Cyst of kidney, acquired; Z96.641 Presence of right artificial hip joint
CPT/HCPCS: 78306; 74178; J3490

== ENCOUNTER → 2022-09-16 10:06 | Outpatient (BNVA) | payer MEDICARE, BC, SELFPAY | PROVIDERS: PCP Nurse Practitioner Family; Referring Provider Nurse Practitioner Family; Visit Provider Nurse Practitioner Gerontology | DX: R35.0 Frequency of micturition (principal); Z85.46 Personal history of malignant neoplasm of prostate | CPT/HCPCS: 51798; 99214 ==

== ENCOUNTER 2022-10-21 12:00 | Outpatient (CLI) | payer MEDICARE, BC, SELFPAY ==
--- NOTE | 2022-10-21 10:45 | DI.RAD_ITS ---
Exam(s) XR SHOULDER RT COMPLETE 2+V EXAM: XR SHOULDER RT COMPLETE 2+V CLINICAL HISTORY: right shoulder f/u. TECHNIQUE: 2D digital imaging was performed. Three images were obtained. AP, axillary and Y views w ere obtained. COMPARISON: CR XR SHOULDER RT COMPLETE 2+V from 02/12/2022 FINDINGS: BONES: There are stable post operative changes present. No fracture or dislocation. JOINTS: The orthopedic hardware is in good position. No evidence of hardware loosening. There are d egenerative changes seen at the acromioclavicular joint. There is an old osseous density inferior to the glenohumeral joint. SOFT TISSUE: Normal. IMPRESSION: Stable postoperative changes. DATA REPOSITORY: RADIATION DOSE DELIVERED:
== END 2022-10-21 12:01 | disposition home or self-care (01) ==
LOC: DIORS 12:01
PROVIDERS: PCP Nurse Practitioner Family; Referring Provider Nurse Practitioner Family; Visit Provider Student in an Organized Health Care Education/Training Program
DX: M75.21 Bicipital tendinitis, right shoulder (principal); M19.011 Primary osteoarthritis, right shoulder
CPT/HCPCS: 99213; 73030

== ENCOUNTER 2022-11-13 13:01 | Emergency (ER) | payer MEDICARE, BC, SELFPAY ==
[2022-11-13 13:05] VITALS: BP 114/53; PULSE 67; RESP 15; TEMP 36.8; O2SAT 98
--- NOTE | 2022-11-13 13:30 | DI.CT_ITS ---
Exam(s) CT HEAD WO EXAM: CT HEAD WO CLINICAL HISTORY: tremors worsening. TECHNIQUE: Imaging Protocol: Axial computed tomography images with coronal and sagittal reformatted images were created and reviewed COMPARISON: No exams were available for comparison FINDINGS: There is artifact from the dental amalgam compromising evaluation of the posterior fossa. Ventricles and Extra axial spaces: Normal in size and morphology for the patient's age. Hemorrhage: None. Cerebral parenchyma: There are areas of decreased attenuation in the white matter consistent with sma ll vessel ischemic disease. 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 No acute territorial i nfarct is seen. Midline shift: None. Brainstem/Cerebellum: Normal. Calvarium: Normal. Visualized Paranasal sinuses/Mastoids: Clear. Soft Tissues: Unremarkable. IMPRESSION: 1. No acute intracranial process. 2. Findings were discussed with the emergency department at 2:56 p.m. on 11/13/2022. RADIATION DOSE DELIVERED: 945.78mGy.cm Total DLP DATA REPOSITORY: All CT scans at this facility are submitted to the National Radiology Data Registry (NRDR) Dose Index Registry (DIR) with the [employer] (ACR). RADIATION OPTIMIZATION: All CT scans at this facility use at least one of these dose optimization te chniques: automated exposure control; mA and/or kV adjustment per patient size (includes targeted exa ms where dose is matched to clinical indication); or iterative reconstruction.
--- NOTE | 2022-11-13 13:41 | ED.GENADUL_ITS ---
Discharge Plan Disposition Patient Disposition: Home Discharge Details Chief Complaint: GenMedical Clinical Impression: Acute dehydration, CRISTY (acute kidney injury) Primary Care Provider: Sanchez Vizcarra ED Provider: Faraz Hahn Home Meds and New Rx's Prescriptions: No Action losartan 100 mg tablet 100 mg PO DAILY Qty: 90 3RF gabapentin 600 mg tablet 600 mg PO TID Qty: 90 5RF duloxetine [Cymbalta] 30 mg capsule,delayed release(DR/EC) 30 mg PO DAILY Qty: 90 1RF Rx Instructions: Note dosage increase tamsulosin 0.4 mg capsule 0.4 mg PO DAILY Qty: 90 3RF hydrochlorothiazide 50 mg tablet 50 mg PO DAILY Qty: 90 3RF amlodipine 5 mg tablet 5 mg PO DAILY Qty: 90 3RF oxybutynin chloride 10 mg tablet extended release 24hr 10 mg PO HS Qty: 90 0RF Rx Instructions: Note dosage change atorvastatin 20 mg tablet 20 mg PO DAILY Qty: 90 3RF omeprazole 20 mg capsule,delayed release(DR/EC) 20 mg PO DAILY Qty: 90 4RF oxycodone 10 mg tablet 10 mg PO BID MDD 20mg PRN (Reason: pain) Qty: 58 0RF Discharge Instructions Instructions: Dehydration (ED) Additional Instructions: Please follow-up with your primary care physician. Please return to the emergency department for any worsening symptoms. Medical Decision Making 77-year-old male history of diabetes, A-fib, presents with worsening resting tremor over the past 4 days, patient is afebrile nontoxic cranial nerves intact 5 out of 5 strength upper and lower extremities no ataxia, normal speech, interactive, does appear dry with dry oral mucosa and dry skin, per family he has been cutting back significantly on his fluid intake as he does not like to urinate as frequently as he normally does. Consider hyponatremia in the setting of decreased free water intake versus other electrolyte abnormality versus less likely intracranial process such as mass edema bleed or infection low suspicion for cardiac process. Consider worsening baseline tremor. Will obtain labs imaging fluids close reassessment 16: 17 likely prerenal CRISTY in the setting of hypovolemia, patient has been deliberately decreasing his p.o. intake as he does not like how much he urinates at home. Patient feeling better after fluid hydration. Given home care instructions on maintaining proper hydration. Patient has close follow-up next week with primary care. Given return precautions HPI General Date/Time Provider Initiated Documentation: 11/13/22 13:13 . HPI Narrative: 77-year-old male history of diabetes A-fib, presents with worsening resting tremor over the past several days. Denies falls or weakness. Related Data Home Medications Medication Instructions Recorded Confirmed losartan 100 mg tablet 100 mg PO DAILY #90 tabs 03/21/22 11/13/22 tamsulosin 0.4 mg capsule 0.4 mg PO DAILY #90 caps 03/25/22 11/13/22 hydrochlorothiazide 50 mg tablet 50 mg PO DAILY #90 tabs 03/31/22 11/13/22 amlodipine 5 mg tablet 5 mg PO DAILY #90 tabs 05/15/22 11/13/22 gabapentin 600 mg tablet 600 mg PO TID #90 tabs 07/02/22 11/13/22 oxybutynin chloride 10 mg 10 mg PO HS #90 tabs 09/01/22 11/13/22 tablet,extended release 24 hr duloxetine 30 mg capsule,delayed 30 mg PO DAILY #90 caps 09/16/22 11/13/22 release (Cymbalta) atorvastatin 20 mg tablet 20 mg PO DAILY #90 tabs 10/01/22 11/13/22 omeprazole 20 mg capsule,delayed 20 mg PO DAILY #90 caps 10/01/22 11/13/22 release oxycodone 10 mg tablet 10 mg PO BID PRN pain #58 tabs 10/20/22 11/13/22 Previous Rx's Medication Instructions Recorded losartan 100 mg tablet 100 mg PO DAILY #90 tabs 03/21/22 tamsulosin 0.4 mg capsule 0.4 mg PO DAILY #90 caps 03/25/22 hydrochlorothiazide 50 mg tablet 50 mg PO DAILY #90 tabs 03/31/22 amlodipine 5 mg tablet 5 mg PO DAILY #90 tabs 05/15/22 gabapentin 600 mg tablet 600 mg PO TID #90 tabs 07/02/22 oxybutynin chloride 10 mg 10 mg PO HS #90 tabs 09/01/22 tablet,extended release 24 hr duloxetine 30 mg capsule,delayed 30 mg PO DAILY #90 caps 09/16/22 release (Cymbalta) atorvastatin 20 mg tablet 20 mg PO DAILY #90 tabs 10/01/22 omeprazole 20 mg capsule,delayed 20 mg PO DAILY #90 caps 10/01/22 release oxycodone 10 mg tablet 10 mg PO BID PRN pain #58 tabs 10/20/22 Allergies Allergy/AdvReac Type Severity Reaction Status Date / Time No Known Allergies Allergy Verified 11/13/22 13:07 General Stated Complaint: GenMedical CHARAN: 3 Review of Systems Narrative: Review of Systems Constitutional: negative Eyes: negative ENT: negative Cardiovascular: negative Respiratory: negative Gastrointestinal: negative : negative Musculoskeletal: negative Skin: negative Neurologic: Tremor Psych: negative PFSH All Active Problems (Updated 11/13/22 @ 16:18 by Faraz Hahn MD) Acute dehydration (Acute) CRISTY (acute kidney injury) (Acute) Left knee pain (Acute) Urinary frequency (Acute) Night sweats (Acute) 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, assoc with GI bleed tx in [place] Prostate cancer (Chronic) 2017 s/p radiation tx in [place], also hormonal tx there ?Lupron Angiodysplasia of colon (Acute) Hyperlipidemia (Acute) Hypertension (Chronic) Ankylosing spondylitis (Acute) HLA B27 (HLA B27 positive) (Acute) Intention tremor (Acute) Essential tremor (Acute) Atrial fibrillation (Chronic) Watchman placed in [place] about 2016 Presence of Watchman left atrial appendage closure device (Acute) Peripheral neuropathy (Acute) Spinal stenosis of lumbar region with neurogenic claudication (Acute) 2019- s/p lumbar sx [place] [facility] [place] Pedal edema (Acute) Rotator cuff tear arthropathy of right shoulder (Acute) Chronic pain syndrome (Chronic) 03/2021-pain agreement at [facility], V PMS queried, patient on tramadol 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-microalbuminuria Fatigue (Acute) Hernia of abdominal wall (Acute) Medical History (Updated 11/13/22 @ 16:18 by aFraz Hahn MD) GERD (gastroesophageal reflux disease) patient denies History of ETOH abuse History of lower GI bleeding Overactive bladder Tendonitis of long head of biceps brachii of right shoulder Surgical History (Updated 08/25/22 @ 11:28 by Sanchez Vizcarra NP) Cortical cataract of right eye History of total right hip replacement Nuclear sclerotic cataract of right eye Posterior subcapsular age-related cataract, right eye Status post cardiac surgery Watchmen Family History Mother No problems noted. Father No problems noted. Sister No problems noted. Sister No problems noted. Brother No problems noted. Daughter No problems noted. Daughter No problems noted. Maternal Grandfather No problems noted. Paternal Grandfather No problems noted. Maternal Grandmother No problems noted. Paternal Grandmother No problems noted. Social History (Updated 08/25/22 @ 16:20 by Yessi Leone) Smoking/Tobacco Use Status: Former Tobacco Use tobacco type: cigarettes Quit Date: 06/08/94 Tobacco: How many years used: 15 Second Hand Exposure: Yes Smoking risk assessment performed?: Yes Alcohol Intake: current Alcohol Intake frequency: a few times a month Alcohol type: beer, wine and hard liquor Drug use: Daily Substance use type: marijuana Caregiver/Support person: No Household members: spouse Housing: house Number of Children: 2 Communication Needs: None Do you need help understanding health information?: Rarely Pets and animals: Yes Pets and animals: cat(s) Sexually active: No Do you think of yourself as: straight/heterosexual Current gender identity: male What is your relationship status?: How often do you talk on the phone with friends or family?: once per week How often do you get together with friends or relatives?: decline to answer How often do you attend jew or protestant services?: decline to answer Do you belong to any clubs or organized social groups?: no Panel score (0-1 are the most socially isolated patients): 1 What type of physical activity do you participate in: none Frequency: does not exercise Rosemary/Taoist: None Special rosemary needs: No Seatbelt use: always Helmet use: No Drive intox or ride w/intox hazardous materials tanker driver: No Do you feel safe at home: Yes Do you feel safe in your relationship?: Yes Exam Narrative Exam Narrative: Physical Examination General: alert, awake, cooperative, resting comfortably, no acute distress HEENT: normocephalic, atraumatic; PERRL, known anisocoria left pupil slightly smaller than right, EOM intact, conjunctiva normal; no nasal discharge; dry oral mucosa Neck: supple, trachea midline; full ROM Chest: normal to inspection Respiratory: normal respiratory effort, speaking in full sentences, clear to auscultation, no wheezing, rales or rhonchi Cardiac: regular rate, regular rhythm, S1S2 intact, no murmurs rubs or gallops GI: abdomen soft, non-tender, non-distended; no palpable mass or hepatosplenomegaly Skin: no lesions, rashes or trauma appreciated; dry Neuro: AAOx3, normal speech, moving all extremities; fine resting tremor of hands, 5/5 strength upper and lower extremities, no ataxia, normal speech, cranial nerves II through XII intact, patient has known anisocoria left pupil slightly smaller than right Psych: Appropriate mood and affect Course Vital Signs Vital signs: Vital Signs Temperature 36.8 C 11/13/22 13:05 Pulse 67 11/13/22 13:05 Respiratory Rate 15 11/13/22 13:05 Blood Pressure 114/53 L 11/13/22 13:05 Pulse Oximetry 98 11/13/22 13:05 Temperature 36.8 C 11/13/22 13:05 Temperature Source Oral 11/13/22 13:05 Pulse 67 11/13/22 13:05 Respiratory Rate 15 11/13/22 13:05 Respiratory Effort Normal 11/13/22 13:12 Blood Pressure 114/53 L 11/13/22 13:05 Blood Pressure Position Supine 11/13/22 13:05 Pulse Oximetry 98 11/13/22 13:05 Oxygen Delivery Method Room Air 11/13/22 13:05 Oxygen Flow Rate 0 11/13/22 13:05
[2022-11-13 13:59] VITALS: RESP 18
[2022-11-13 14:23] LABS: Abs Immature Grans 0.02 10^3/uL (0.0-0.06); Absolute Basophil Count 0.05 10^3/uL (0.0-0.2); Absolute Eosinophil Count 0.29 10^3/uL (0.0-0.7); Absolute Lymphocyte Count 1.35 10^3/uL (1.2-3.4); Absolute Monocyte Count 0.52 10^3/uL (0.1-0.8); Absolute Neutrophil Count 4.55 10^3/uL (1.2-6.7); Basophils % 0.7; Eosinophils % 4.3; HCT 33.7 % (40.0-50.0); HGB 10.7 g/dL (13.5-17.5); Immature Grans % 0.3; Lymphocytes % 19.9; MCH 27.2 pg (27.0-33.0); MCHC 31.8 % (32.0-36.0); MCV 86 fL (80-95); MPV 10.3 fL (8.0-11.0); Monocytes % 7.7; Neutrophils % 67.1; Platelet Count 198 10^3/uL (130-400); RBC 3.93 10^6/uL (4.36-5.78); RDW 14.6 % (11.8-14.1); RDW-SD 46.3 fL; WBC 6.78 10^3/uL (4.4-10.8)
[2022-11-13] MEDS: Normal Saline 500 ML 1000 ML IV (14:23)
[2022-11-13 14:46] LABS: ALT 34 U/L (16-63); AST 46 U/L (15-37); Albumin 3.3 g/dL (3.4-5.0); Alkaline Phosphatase 123 U/L (46-116); Anion Gap 4.8 mmol/L (3-11); BUN 47 mg/dL (7-18); Bilirubin, Total 0.7 mg/dL (0.2-1.0); CO2 34.2 mmol/L (21.0-32.0); CREATININE 2.2 mg/dL (0.70-1.30); Calcium 8.5 mg/dL (8.5-10.1); Chloride 100 mmol/L (98-107); Estimated GFR 30.47 (mL/min/1.73m2); Glucose 179 mg/dL (74-106); Potassium 3.2 mmol/L (3.5-5.1); Sodium 139 mmol/L (136-145); TSH (W/Ref FT4) 1.66 uIU/mL (0.36-3.74); Total Protein 7.6 g/dL (6.4-8.2)
[2022-11-13 16:23] VITALS: BP 120/64; PULSE 56; TEMP 36.6; O2SAT 97
[2022-11-13 16:30] VITALS: BP 120/64; PULSE 56; RESP 16; TEMP 36.6; O2SAT 97
== END 2022-11-13 16:31 | disposition home or self-care (01) ==
PROVIDERS: Emergency Provider Emergency Medicine; PCP Nurse Practitioner Family
DX: E86.0 Dehydration (principal); N17.9 Acute kidney failure, unspecified
CPT/HCPCS: 36415; 80053; 96360; 99284; 70450; 83735; 84443; 85025

== ENCOUNTER → 2022-12-22 10:10 | Outpatient (BNVA) | payer MEDICARE, BC, SELFPAY | PROVIDERS: PCP Nurse Practitioner Family; Visit Provider Nurse Practitioner Gerontology | DX: R35.0 Frequency of micturition (principal); R61 Generalized hyperhidrosis | CPT/HCPCS: 51798; 99213 ==

== ENCOUNTER → 2022-12-31 11:20 | Outpatient (BNVA) | payer MEDICARE, BC, SELFPAY | PROVIDERS: PCP Nurse Practitioner Family; Visit Provider Psychiatry & Neurology Neurology ==

== ENCOUNTER 2022-12-31 13:51 | Emergency (ER) | payer MEDICARE, BC, SELFPAY ==
[2022-12-31] VITALS (10 sets, daily range): BP systolic 130–148; BP diastolic 53–73; PULSE 43–73; RESP 10–20; TEMP 36.7; O2SAT 96–98
--- NOTE | 2022-12-31 13:45 | RT.EKG_ITS ---
APPROVED REPORT Exam: Resting ECG Reason for Exam: low potassium Patient Location: E HR:58 bpm ECG Measurements Heart Rate 58 AXIS NV [id number] P [id number] QRSd 98 QRS -25 QT 602 T 129 QTc 594 Conclusion Atrial fibrillation...? atrial activity Repol abnrm suggests ischemia, lateral leads...ST dep, T neg, I aVL V5 V6 Prolonged QT interval...QTc >500mS narrow complex, irregular rhythm, left axis, t wave inversions V4 V5
--- NOTE | 2022-12-31 14:31 | ED.GENADUL_ITS ---
Discharge Plan Disposition Patient Disposition: Home Condition: Improving Discharge Details Chief Complaint: GenMedical Clinical Impression: Hypokalemia Primary Care Provider: Sanchez Vizcarra ED Provider: Faraz Hahn Home Meds and New Rx's Prescriptions: No Action hydromorphone 2 mg tablet 4 - 8 mg PO Q6H MDD 32 mg PRN (Reason: pain) Qty: 60 0RF duloxetine [Cymbalta] 30 mg capsule,delayed release(DR/EC) 30 mg PO DAILY Qty: 90 1RF Rx Instructions: Note dosage increase sennosides [senna] 8.6 mg tablet 8.6 - 17.2 mg PO BID PRN (Reason: constipation) Qty: 60 2RF hydroxyzine HCl 25 mg tablet 25 mg PO QHS PRN (Reason: itching) Qty: 30 0RF Rx Instructions: to use as needed for itching avoid use with gabapentin and hydromorphone as able tamsulosin 0.4 mg capsule 0.4 mg PO DAILY Qty: 90 3RF amlodipine 5 mg tablet 5 mg PO DAILY Qty: 90 3RF atorvastatin 20 mg tablet 20 mg PO DAILY Qty: 90 3RF omeprazole 20 mg capsule,delayed release(DR/EC) 20 mg PO DAILY Qty: 90 4RF oxybutynin chloride 10 mg tablet extended release 24hr 10 mg PO HS Qty: 90 0RF Rx Instructions: Note dosage change gabapentin 600 mg tablet 600 mg PO TID Qty: 90 5RF hydrochlorothiazide 50 mg tablet 50 mg PO DAILY Qty: 90 3RF losartan 100 mg tablet 100 mg PO DAILY Qty: 90 3RF Discharge Instructions Instructions: Hypokalemia (ED) Additional Instructions: Please follow-up closely with your primary care physician. Please return to the emergency department for any worsening symptoms Medical Decision Making 37-year-old male history of A-fib hypertension presents referred in for evaluat ion of hypokalemia on outpatient labs. Patient largely asymptomatic. Hemodynamically stable afebrile nontoxic. Bradycardic A-fib on EKG. No chest pain or shortness of breath. Neurologically intact. We will send repeat labs, will likely repleat potassium. 16: 04 again hypokalemia noted on labs. Repleting with IV and p.o. potassium. Patient resting comfortably hemodynamically stable neurologically intact. Will be discharged after repletion. Given home care instructions and return precautions HPI General Date/Time Provider Initiated Documentation: 12/31/22 14:09 . HPI Narrative: 77-year-old male history of hypertension A-fib presents referred in by neurologist as patient was found to have hypokalemia on outpatient labs. Related Data Home Medications Medication Instructions Recorded Confirmed tamsulosin 0.4 mg capsule 0.4 mg PO DAILY #90 caps 03/25/22 12/31/22 amlodipine 5 mg tablet 5 mg PO DAILY #90 tabs 05/15/22 12/31/22 duloxetine 30 mg capsule,delayed 30 mg PO DAILY #90 caps 09/16/22 12/31/22 release (Cymbalta) atorvastatin 20 mg tablet 20 mg PO DAILY #90 tabs 10/01/22 12/31/22 omeprazole 20 mg capsule,delayed 20 mg PO DAILY #90 caps 10/01/22 12/31/22 release oxybutynin chloride 10 mg 10 mg PO HS #90 tabs 11/24/22 12/31/22 tablet,extended release 24 hr gabapentin 600 mg tablet 600 mg PO TID #90 tabs 11/26/22 12/31/22 hydroxyzine HCl 25 mg tablet 25 mg PO QHS PRN itching #30 tabs 12/15/22 12/31/22 sennosides 8.6 mg tablet (senna) 8.6 - 17.2 mg PO BID PRN 12/15/22 12/31/22 constipation #60 tabs hydromorphone 2 mg tablet 4 - 8 mg PO Q6H PRN pain #60 tabs 12/23/22 12/31/22 hydrochlorothiazide 50 mg tablet 50 mg PO DAILY #90 tabs 12/29/22 12/31/22 losartan 100 mg tablet 100 mg PO DAILY #90 tabs 12/29/22 12/31/22 Previous Rx's Medication Instructions Recorded tamsulosin 0.4 mg capsule 0.4 mg PO DAILY #90 caps 03/25/22 amlodipine 5 mg tablet 5 mg PO DAILY #90 tabs 05/15/22 duloxetine 30 mg capsule,delayed 30 mg PO DAILY #90 caps 09/16/22 release (Cymbalta) atorvastatin 20 mg tablet 20 mg PO DAILY #90 tabs 10/01/22 omeprazole 20 mg capsule,delayed 20 mg PO DAILY #90 caps 10/01/22 release oxybutynin chloride 10 mg 10 mg PO HS #90 tabs 11/24/22 tablet,extended release 24 hr gabapentin 600 mg tablet 600 mg PO TID #90 tabs 11/26/22 hydroxyzine HCl 25 mg tablet 25 mg PO QHS PRN itching #30 tabs 12/15/22 sennosides 8.6 mg tablet (senna) 8.6 - 17.2 mg PO BID PRN 12/15/22 constipation #60 tabs hydromorphone 2 mg tablet 4 - 8 mg PO Q6H PRN pain #60 tabs 12/23/22 hydrochlorothiazide 50 mg tablet 50 mg PO DAILY #90 tabs 12/29/22 losartan 100 mg tablet 100 mg PO DAILY #90 tabs 12/29/22 Allergies Allergy/AdvReac Type Severity Reaction Status Date / Time No Known Allergies Allergy Verified 12/31/22 14:02 General Stated Complaint: GenMedical CHARAN: 3 Review of Systems Narrative: Review of Systems Constitutional: negative Eyes: negative ENT: negative Cardiovascular: negative Respiratory: negative Gastrointestinal: negative : negative Musculoskeletal: negative Skin: negative Neurologic: negative Psych: negative PFSH All Active Problems (Updated 12/31/22 @ 16:02 by Faraz Hahn MD) Hypokalemia (Acute) Constipation due to opioid therapy (Acute) 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) Severe itching (Acute) Left knee pain (Acute) Urinary frequency (Acute) Night sweats (Acute) 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, assoc with GI bleed tx in [place] Prostate cancer (Chronic) 2017 s/p radiation tx in [place], also hormonal tx there ?Lupron Angiodysplasia of colon (Acute) Hyperlipidemia (Acute) Hypertension (Chronic) Ankylosing spondylitis (Acute) HLA B27 (HLA B27 positive) (Acute) Intention tremor (Acute) Essential tremor (Acute) Atrial fibrillation (Chronic) Watchman placed in [place] about 2016 Presence of Watchman left atrial appendage closure device (Acute) Peripheral neuropathy (Acute) Spinal stenosis of lumbar region with neurogenic claudication (Acute) 2019- s/p lumbar sx at [facility] [place] Pedal edema (Acute) Rotator cuff tear arthropathy of right shoulder (Acute) Chronic pain syndrome (Chronic) 03/2021-pain agreement at [facility], V PMS queried, patient on tramadol 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-microalbuminuria Fatigue (Acute) Hernia of abdominal wall (Acute) Medical History GERD (gastroesophageal reflux disease) patient denies History of ETOH abuse History of lower GI bleeding Overactive bladder Tendonitis of long head of biceps brachii of right shoulder Surgical History Cortical cataract of right eye History of lumbar laminectomy History of total right hip replacement Nuclear sclerotic cataract of right eye Posterior subcapsular age-related cataract, right eye Status post cardiac surgery Watchmen Family History Mother No problems noted. Father No problems noted. Sister No problems noted. Sister No problems noted. Brother No problems noted. Daughter No problems noted. Daughter No problems noted. Maternal Grandfather No problems noted. Paternal Grandfather No problems noted. Maternal Grandmother No problems noted. Paternal Grandmother No problems noted. Social History Smoking/Tobacco Use Status: Former Tobacco Use tobacco type: cigarettes Quit Date: 06/08/94 Tobacco: How many years used: 15 Second Hand Exposure: Yes Smoking risk assessment performed?: Yes Alcohol Intake: current Alcohol Intake frequency: a few times a month Alcohol type: beer, wine and hard liquor Drug use: Daily Substance use type: marijuana Caregiver/Support person: No Household members: spouse Housing: house Number of Children: 2 Communication Needs: None Do you need help understanding health information?: Rarely Pets and animals: Yes Pets and animals: cat(s) Sexually active: No Do you think of yourself as: straight/heterosexual Current gender identity: male What is your relationship status?: How often do you talk on the phone with friends or family?: once per week How often do you get together with friends or relatives?: decline to answer How often do you attend uatsdin or pentecostal services?: decline to answer Do you belong to any clubs or organized social groups?: no Panel score (0-1 are the most socially isolated patients): 1 What type of physical activity do you participate in: none Frequency: does not exercise Rosemary/Hoahaoism: None Special rosemary needs: No Seatbelt use: always Helmet use: No Drive intox or ride w/intox crude oil driver: No Do you feel safe at home: Yes Do you feel safe in your relationship?: Yes Exam Narrative Exam Narrative: Physical Examination General: alert, awake, cooperative, resting comfortably, no acute distress HEENT: normocephalic, atraumatic; PERRL, EOM intact, conjunctiva normal; no nasal discharge; moist mucous membranes, oral and pharyngeal mucosa normal, tolerating secretions Neck: supple, trachea midline; full ROM Chest: normal to inspection Respiratory: normal respiratory effort, speaking in full sentences, clear to auscultation, no wheezing, rales or rhonchi Cardiac: regular rate, regular rhythm, S1S2 intact, no murmurs rubs or gallops GI: abdomen soft, non-tender, non-distended; no palpable mass or hepatosplenomegaly Skin: no lesions, rashes or trauma appreciated Neuro: AAOx3, normal speech, moving all extremities Psych: Appropriate mood and affect Course Vital Signs Vital signs: Vital Signs Temperature 36.7 C 12/31/22 13:57 Pulse 73 12/31/22 13:57 Respiratory Rate 18 12/31/22 13:57 Blood Pressure 146/64 H 12/31/22 13:57 Pulse Oximetry 97 12/31/22 13:57 Temperature 36.7 C 12/31/22 13:57 Temperature Source Oral 12/31/22 13:57 Pulse 73 12/31/22 13:57 Respiratory Rate 15 12/31/22 14:05 Respiratory Effort Normal, Non-Labored 12/31/22 14:05 Respiratory Depth Normal 12/31/22 14:05 Respiratory Pattern Normal 12/31/22 14:05 Blood Pressure 146/64 H 12/31/22 13:57 Pulse Oximetry 97 12/31/22 13:57 Oxygen Delivery Method Room Air 12/31/22 13:57 Oxygen Flow Rate 0 12/31/22 13:57
[2022-12-31 15:29] LABS: Abs Immature Grans 0.03 10^3/uL (0.0-0.06); Absolute Basophil Count 0.05 10^3/uL (0.0-0.2); Absolute Eosinophil Count 0.32 10^3/uL (0.0-0.7); Absolute Lymphocyte Count 1.32 10^3/uL (1.2-3.4); Absolute Monocyte Count 0.51 10^3/uL (0.1-0.8); Basophils % 0.7; Eosinophils % 4.2; HCT 31.7 % (40.0-50.0); HGB 10.4 g/dL (13.5-17.5); Immature Grans % 0.4; Lymphocytes % 17.3; MCH 27.4 pg (27.0-33.0); MCHC 32.8 % (32.0-36.0); MCV 84 fL (80-95); MPV 10.4 fL (8.0-11.0); Monocytes % 6.7; Neutrophils % 70.7; Platelet Count 243 10^3/uL (130-400); RBC 3.79 10^6/uL (4.36-5.78); RDW 14.6 % (11.8-14.1); RDW-SD 44.2 fL; WBC 7.63 10^3/uL (4.4-10.8)
[2022-12-31 15:44] LABS: ALT 21 U/L (16-63); AST 21 U/L (15-37); Albumin 3.2 g/dL (3.4-5.0); Alkaline Phosphatase 126 U/L (46-116); Anion Gap 9.9 mmol/L (3-11); BUN 16 mg/dL (7-18); Bilirubin, Total 0.7 mg/dL (0.2-1.0); CO2 31.1 mmol/L (21.0-32.0); CREATININE 1.5 mg/dL (0.70-1.30); Calcium 8.4 mg/dL (8.5-10.1); Chloride 105 mmol/L (98-107); Estimated GFR 48.25 (mL/min/1.73m2); Glucose 148 mg/dL (74-106); Sodium 146 mmol/L (136-145); Total Protein 7.5 g/dL (6.4-8.2)
[2022-12-31] MEDS: Potassium Chloride 20 MEQ TABCR PO (15:45)
[2022-12-31] MEDS: POTASSIUM CHLORIDE 10 MEQ/100 ML BAG 100 MEQ IVPB (15:45)
[2022-12-31 15:49] LABS: Potassium 2.2 mmol/L (3.5-5.1)
--- NOTE | 2023-01-02 15:05 | NUR.NOTE ---
Accessed chart to determine orders for EKG and to determine whether or not one needs to be cancelled. Nursing Note:
== END 2022-12-31 17:39 | disposition home or self-care (01) ==
PROVIDERS: Emergency Provider Emergency Medicine; PCP Nurse Practitioner Family
DX: E87.6 Hypokalemia (principal)
CPT/HCPCS: 36415; 80048; 80053; 93005; 96365; 99214; 99284; 83735; 85025; 93010; J3480

== ENCOUNTER 2022-12-31 18:06 | Outpatient (CLI) | payer MEDICARE, BC, SELFPAY ==
[2022-12-31 13:01] LABS: Anion Gap 9.2 mmol/L (3-11); BUN 16 mg/dL (7-18); CO2 31.8 mmol/L (21.0-32.0); CREATININE 1.5 mg/dL (0.70-1.30); Calcium 8.7 mg/dL (8.5-10.1); Chloride 104 mmol/L (98-107); Estimated GFR 48.25 (mL/min/1.73m2); Glucose 175 mg/dL (74-106); Sodium 145 mmol/L (136-145)
[2022-12-31 13:04] LABS: Potassium 2.5 mmol/L (3.5-5.1)
== END 2022-12-31 18:07 | disposition home or self-care (01) ==
LOC: LBO 18:07
PROVIDERS: PCP Nurse Practitioner Family; Visit Provider Psychiatry & Neurology Neurology
DX: N17.9 Acute kidney failure, unspecified (principal)
CPT/HCPCS: 36415; 80048; 99214

== ENCOUNTER 2023-01-01 11:16 | Outpatient (CLI) | payer MEDICARE, BC, SELFPAY ==
[2023-01-01 11:01] LABS: ALT 24 U/L (16-63); AST 26 U/L (15-37); Albumin 3.5 g/dL (3.4-5.0); Alkaline Phosphatase 133 U/L (46-116); Anion Gap 8.3 mmol/L (3-11); BUN 13 mg/dL (7-18); Bilirubin, Total 1.1 mg/dL (0.2-1.0); CO2 32.7 mmol/L (21.0-32.0); CREATININE 1.4 mg/dL (0.70-1.30); Calcium 8.8 mg/dL (8.5-10.1); Chloride 102 mmol/L (98-107); Estimated GFR 52.41 (mL/min/1.73m2); Glucose 180 mg/dL (74-106); Sodium 143 mmol/L (136-145); Total Protein 8.1 g/dL (6.4-8.2)
[2023-01-01 11:09] LABS: Potassium 2.5 mmol/L (3.5-5.1)
== END 2023-01-01 11:17 | disposition home or self-care (01) ==
LOC: LBO 11:18
PROVIDERS: PCP Nurse Practitioner Family; Visit Provider Preventive Medicine Occupational Medicine
DX: E87.6 Hypokalemia (principal)
CPT/HCPCS: 36415; 80053

== ENCOUNTER 2023-01-05 02:40 | Outpatient (CLI) | payer MEDICARE, BC, SELFPAY ==
[2023-01-05 12:07] LABS: Anion Gap 11.7 mmol/L (3-11); BUN 20 mg/dL (7-18); CO2 29.3 mmol/L (21.0-32.0); CREATININE 1.4 mg/dL (0.70-1.30); Calcium 9.3 mg/dL (8.5-10.1); Chloride 98 mmol/L (98-107); Estimated GFR 52.41 (mL/min/1.73m2); Glucose 171 mg/dL (74-106); Sodium 139 mmol/L (136-145)
== END 2023-01-05 02:41 | disposition home or self-care (01) ==
PROVIDERS: PCP Nurse Practitioner Family; Visit Provider Nurse Practitioner Family
DX: E87.6 Hypokalemia (principal); I10 Essential (primary) hypertension
CPT/HCPCS: 36415; 80048

== ENCOUNTER 2023-01-13 04:00 | Outpatient (CLI) | payer MEDICARE, BC, SELFPAY ==
[2023-01-13 10:07] LABS: BUN 16 mg/dL (7-18); CREATININE 1.3 mg/dL (0.70-1.30); Calcium 9.3 mg/dL (8.5-10.1); Chloride 104 mmol/L (98-107); Estimated GFR 57.29 (mL/min/1.73m2); Glucose 166 mg/dL (74-106); Sodium 138 mmol/L (136-145)
== END 2023-01-13 04:01 | disposition home or self-care (01) ==
LOC: LBO 04:00
PROVIDERS: PCP Nurse Practitioner Family; Visit Provider Nurse Practitioner Family
DX: E87.6 Hypokalemia (principal)
CPT/HCPCS: 36415; 80048

== ENCOUNTER → 2023-02-26 08:34 | Outpatient (BNVA) | payer MEDICARE, BC, SELFPAY | PROVIDERS: PCP Nurse Practitioner Family; Referring Provider Nurse Practitioner Family; Visit Provider Psychiatry & Neurology Neurology | DX: R26.89 Other abnormalities of gait and mobility (principal); E11.42 Type 2 diabetes mellitus with diabetic polyneuropathy; R53.83 Other fatigue; G47.00 Insomnia, unspecified; R35.1 Nocturia; G89.29 Other chronic pain; N17.9 Acute kidney failure, unspecified; R47.1 Dysarthria and anarthria; G25.0 Essential tremor | CPT/HCPCS: 99215 ==

== ENCOUNTER 2023-03-26 02:35 | Outpatient (CLI) | payer MEDICARE, BC, SELFPAY ==
--- NOTE | 2023-03-26 07:15 | DI.US_ITS ---
Exam(s) US LOWER EXTREMITY VENOUS LT EXAM: US LOWER EXTREMITY VENOUS LT CLINICAL HISTORY: Lt lower extremety swelling,m79.89 TECHNIQUE: Left lower extremity venous ultrasound performed using grayscale, color-flow, and spectra l Doppler analysis. COMPARISON: No priors for comparison. FINDINGS: The left common femoral, femoral and popliteal veins demonstrate normal compressibility, augmentation , and color Doppler. The posterior tibial and peroneal veins are patent. The saphenofemoral junction is unremarkable. There is no evidence of a Jacobs cyst. The soft tissues are unremarkable. IMPRESSION: No evidence of a left lower extremity DVT. DATA REPOSITORY:
== END 2023-03-26 02:55 ==
LOC: DI 02:35
PROVIDERS: PCP Nurse Practitioner Family; Visit Provider Nurse Practitioner Family
DX: M79.89 Other specified soft tissue disorders (principal)
CPT/HCPCS: 93971

== ENCOUNTER 2023-06-18 11:31 | Outpatient (CLI) | payer MEDICARE, BC, SELFPAY ==
--- NOTE | 2023-06-18 06:00 | DI.RAD_ITS ---
Exam(s) XR PAIN CLINIC LUMBAR SP 2V EXAM: XR PAIN CLINIC LUMBAR SP 2V CLINICAL HISTORY: DX: Lumbar spondylosis TECHNIQUE: 2D and realtime digital imaging was performed. CONTRAST MATERIAL: Refer to procedure report. COMPARISON: No exams were available for comparison FINDINGS: Fluoroscopy was provided for Dr. Dumont during the performance of a lumbar medial branch block. Collins ramirez refer to the procedure report for complete details. Ka,r=25.1 mGy IMPRESSION:
[2023-06-18 12:28] VITALS: BP 139/74; PULSE 63; RESP 20; TEMP 36.6; O2SAT 98
--- NOTE | 2023-06-18 13:01 | PDOC.PAIN_ITS ---
Date of service: 06/18/23 Time of Service: 13:01 Pain Managment Procedure Note Procedure Note Procedure Note: PROCEDURE NOTE Bilateral Lumbar Medial Branch Blocks Date of Service: June 18, 2023 Patient: [place] Park Provider: Lindy Dumont DO, MPH [place] has been [facility] for lumbar medial branch blocks. Pre-operative diagnosis: Lumbar Spondylosis without Myelopathy Post-operative diagnosis: Same Pre-procedure pain: VAS= 8/10 COMMENTS: I previously evaluated him in the office. His symptoms are the same as they were on that day. Zoya was interviewed and the medical records were reviewed. There were no medical, pharmacologic, radiographic or other structural contraindications to attempting fluoroscopically guided local anesthetic lumbar medial branch blocks. Risks and potential side effects were discussed. I also discussed the potential benefit(s) of the procedure with Heron, and voiced concerns were addressed. After Heron was completely informed about the procedure, the printed consent form was signed. A standard time-out procedure was performed. Heron was placed in the prone position on the fluoroscopy table. Automated blood pressure cuff and pulse oximeter were applied. The skin entry points for approaching the anatomic target points of the segmental medial branches of bilateral L3,L4,L5 were identified with fluoroscopy and marked. The skin at the target site area was thoroughly prepared with Chlorhexadine. The skin was then draped. Next, a 25 gauge 3.5 spinal needle was placed under fluoroscopic guidance down on to the target point (the articular pillar) for each respective segmental medial branch. Position was confirmed in A/P and lateral views. Aspiration revealed no blood or clear fluid. Next, 0.25ml of omnipaque 240 was injected at each level. No contrast following a vascular or neural pattern was visualized under continuous fluoroscopy. Next, 0.25 ml of preservative-free 0.5% bupivicaine was injected at each level. There was no unusual discomfort expressed by Heron. The needles were withdrawn without difficulty. (49 mls of Omnipaque was wasted) Heron was observed and was without hemodynamic, neurologic, or allergic reactions.? Fluoroscopic images were digitally archived. Provacative testing using the Modified Hicks's facet loading test- Left side Right Side Directly before the block VAS (0-10) = 8/10 VAS (0-10) = 8/10 Five minutes after the block VAS (0-10) = 2/10 VAS (0-10) = 2/10 Percentage relief obtained with this diagnostic block 85% 85% Any improved physical functioning directly after the blocks? Able to move much easier. Follow up plans and appointments were discussed with Heron. Heron was instructed to keep careful note of how the usual pain was modified by these injections. Specifically, to keep a pain diary for the next 4 hours using a numeric pain scale of 0-10 and report these results. Post procedure instruction was given as documented in the nursing documentation and having met discharge criteria, the patient was [facility]. Based on the medial branches blocked today, if they patient has adequate relief and we are able to proceed to radiofrequency ablation, the treatment should result in the denervation of the bilateral L4-L5 and L5-S1 facet joints. We would expect to denervate a total of 4 facets during the radiofrequency ablation. COMMENTS: No apparent complications. Post-procedure pain: VAS= 2/10 Heron will call back with 0-4 hour post-procedure pain scores. I personally performed the entire procedure. LINDY DUMONT DO, MPH ABPM&R-subspecialty board certification in Pain Medicine [facility] [facility]
[2023-06-18 13:11] VITALS: BP 136/94; PULSE 47; RESP 19; O2SAT 97
[2023-06-18] MEDS: Bupivacaine 0.5% Pres-Free 10 ML VIAL IJ (13:15)
[2023-06-18] MEDS: Omnipaque 240 MG/ML 50 ML BTL IJ (13:15)
== END 2023-06-18 11:32 | disposition home or self-care (01) ==
LOC: PC 11:31
PROVIDERS: PCP Nurse Practitioner Family; Visit Provider Preventive Medicine Occupational Medicine
DX: M54.50 Low back pain, unspecified (principal); M47.816 Spondylosis without myelopathy or radiculopathy, lumbar region
CPT/HCPCS: 00123; 64493; 64494; 72100; J0665; Q9967

== ENCOUNTER → 2023-07-01 11:05 | Outpatient (BNVA) | payer MEDICARE, BC, SELFPAY | PROVIDERS: PCP Nurse Practitioner Family; Visit Provider Psychiatry & Neurology Neurology | DX: G25.0 Essential tremor (principal); G62.9 Polyneuropathy, unspecified; N17.9 Acute kidney failure, unspecified | CPT/HCPCS: 99214 ==

== ENCOUNTER → 2023-07-08 10:49 | Outpatient (BNVA) | payer MEDICARE, BC, SELFPAY | PROVIDERS: PCP Nurse Practitioner Family; Visit Provider Nurse Practitioner Gerontology | DX: N32.81 Overactive bladder (principal); C61 Malignant neoplasm of prostate; R61 Generalized hyperhidrosis | CPT/HCPCS: 51798; 81003; 99214 ==

== ENCOUNTER 2023-07-08 13:48 | Outpatient (CLI) | payer MEDICARE, BC, SELFPAY ==
[2023-07-09 17:37] LABS: PSA, Ultrasensitive <0.01 ng/mL (<= 6.5)
[2023-07-12 12:33] LABS: Testosterone, Total 11 ng/dL (240-950)
== END 2023-07-08 13:49 | disposition home or self-care (01) ==
LOC: LBO 14:03
PROVIDERS: PCP Nurse Practitioner Family; Visit Provider Nurse Practitioner Gerontology
DX: C61 Malignant neoplasm of prostate (principal)
CPT/HCPCS: 36415; 51798; 81003; 84153; 84403; 99214

== ENCOUNTER 2023-10-05 05:47 | Outpatient (CLI) | payer MEDICARE, BC, SELFPAY ==
[2023-10-05 13:34] LABS: CREATININE 2.9 mg/dL (0.70-1.30); Calculated LDL 64 mg/dL (<100); Cholesterol 136 mg/dL (<200); Estimated GFR 21.74 (mL/min/1.73m2); HDL Cholesterol 56 mg/dL (40-60); Triglyceride 84 mg/dL (<150)
[2023-10-05 13:46] LABS: Potassium 6.1 mmol/L (3.5-5.1)
== END 2023-10-05 05:48 | disposition home or self-care (01) ==
LOC: LBO 05:47
PROVIDERS: PCP Nurse Practitioner Family; Visit Provider Nurse Practitioner Family
DX: E78.2 Mixed hyperlipidemia (principal); I10 Essential (primary) hypertension
CPT/HCPCS: 36415; 80061; 82565; 84132

== ENCOUNTER → 2023-10-28 13:06 | Outpatient (BNVA) | payer MEDICARE, BC, SELFPAY | PROVIDERS: PCP Nurse Practitioner Family; Referring Provider Nurse Practitioner Family; Visit Provider Psychiatry & Neurology Neurology | DX: M25.512 Pain in left shoulder (principal); G25.0 Essential tremor; G62.9 Polyneuropathy, unspecified; N17.9 Acute kidney failure, unspecified | CPT/HCPCS: 99214 ==

== ENCOUNTER 2023-11-09 04:47 | Outpatient (CLI) | payer MEDICARE, BC, SELFPAY ==
[2023-11-09 16:43] LABS: ALT 22 U/L (16-63); AST 19 U/L (15-37); Albumin 3.9 g/dL (3.4-5.0); Alkaline Phosphatase 166 U/L (46-116); Anion Gap 12.4 mmol/L (3-11); Bilirubin, Total 0.9 mg/dL (0.2-1.0); CO2 20.6 mmol/L (21.0-32.0); CREATININE 3.1 mg/dL (0.70-1.30); Chloride 101 mmol/L (98-107); Estimated GFR 20.07 (mL/min/1.73m2); Glucose 107 mg/dL (74-106); Sodium 134 mmol/L (136-145); Total Protein 8.2 g/dL (6.4-8.2)
[2023-11-09 18:04] LABS: BUN 88 mg/dL (7-18); Potassium 6.5 mmol/L (3.5-5.1)
== END 2023-11-09 04:48 | disposition home or self-care (01) ==
LOC: LBO 04:47
PROVIDERS: Psychiatry & Neurology Neurology; PCP Nurse Practitioner Family; Visit Provider Nurse Practitioner Family
DX: G25.0 Essential tremor (principal); N19 Unspecified kidney failure
CPT/HCPCS: 36415; 80053; 81003

== ENCOUNTER → 2023-11-23 07:56 | Outpatient (BNVA) | payer MEDICARE, BC, SELFPAY | PROVIDERS: PCP Nurse Practitioner Family; Referring Provider Nurse Practitioner Family; Visit Provider Nurse Practitioner Gerontology | DX: R33.8 Other retention of urine (principal) | CPT/HCPCS: 51798; 99213 ==

== ENCOUNTER 2023-12-02 11:11 | Outpatient (CLI) | payer MEDICARE, BC, SELFPAY ==
--- NOTE | 2023-12-02 10:00 | DI.RAD_ITS ---
Exam(s) XR SHOULDER LT COMPLETE 2+V EXAM: XR SHOULDER LT COMPLETE 2+V CLINICAL HISTORY: LEFT SHOULDER PAIN. TECHNIQUE: 2D digital imaging was performed. Two views. COMPARISON: None FINDINGS: BONES: No acute fracture is present. No bony destructive lesion is seen. Spurring undersurface of ac romion. Spurring at greater tuberosity. JOINTS: No dislocation present. Glenohumeral joint space is maintained. SOFT TISSUE: Normal. IMPRESSION: Prominent spurring at undersurface of acromion. Mild glenohumeral joint degenerative changes. DATA REPOSITORY: RADIATION DOSE DELIVERED:
== END 2023-12-02 11:12 | disposition home or self-care (01) ==
LOC: DIORS 11:11
PROVIDERS: PCP Nurse Practitioner Family; Referring Provider Nurse Practitioner Family; Visit Provider Student in an Organized Health Care Education/Training Program
DX: M19.012 Primary osteoarthritis, left shoulder
CPT/HCPCS: 20610; J1010; 73030

== ENCOUNTER 2024-01-04 09:34 | Outpatient (CLI) | payer MEDICARE, BC, SELFPAY ==
[2024-01-04 14:38] LABS: ALT 20 U/L (16-63); AST 15 U/L (15-37); Albumin 3.3 g/dL (3.4-5.0); Alkaline Phosphatase 134 U/L (46-116); Anion Gap 8.6 mmol/L (3-11); BUN 39 mg/dL (7-18); Bilirubin, Total 0.53 mg/dL (0.2-1.0); CO2 25.4 mmol/L (21.0-32.0); CREATININE 2.1 mg/dL (0.70-1.30); Calcium 8.9 mg/dL (8.5-10.1); Chloride 110 mmol/L (98-107); Estimated GFR 32.02 (mL/min/1.73m2); Glucose 107 mg/dL (74-106); Potassium 5.2 mmol/L (3.5-5.1); Sodium 144 mmol/L (136-145); Total Protein 7.6 g/dL (6.4-8.2)
== END 2024-01-04 09:35 | disposition home or self-care (01) ==
LOC: LBO 01-11 09:35
PROVIDERS: PCP Nurse Practitioner Family; Visit Provider Nurse Practitioner Family
DX: E11.21 Type 2 diabetes mellitus with diabetic nephropathy (principal)
CPT/HCPCS: 36415; 80053

== ENCOUNTER → 2024-01-20 11:00 | Outpatient (BNVA) | payer MEDICARE, BC, SELFPAY | PROVIDERS: PCP Nurse Practitioner Family; Visit Provider Psychiatry & Neurology Neurology | DX: G25.0 Essential tremor (principal); G62.9 Polyneuropathy, unspecified; N17.9 Acute kidney failure, unspecified; M25.512 Pain in left shoulder | CPT/HCPCS: 99213 ==

== ENCOUNTER → 2024-01-20 13:14 | Outpatient (BNVA) | payer MEDICARE, BC, SELFPAY | PROVIDERS: PCP Nurse Practitioner Family; Visit Provider Nurse Practitioner Gerontology | DX: N32.81 Overactive bladder (principal); R61 Generalized hyperhidrosis; R35.0 Frequency of micturition; C61 Malignant neoplasm of prostate | CPT/HCPCS: 51798; 81003; 99213; 99214 ==

== ENCOUNTER 2024-02-04 02:35 | Outpatient (CLI) | payer MEDICARE, BC, SELFPAY ==
--- NOTE | 2024-02-04 08:49 | DI.CT_ITS ---
Exam(s) CT UPPER EXTREMITY LT WO EXAM: CT UPPER EXTREMITY LT WO CLINICAL HISTORY: SURGICAL PLANNING, LT SHOULDER PAIN, OA, M25.512, M19.012. TECHNIQUE: Imaging Protocol: Axial computed tomography images with coronal and sagittal reformatted images were created and reviewed. COMPARISON: CR XR SHOULDER LT COMPLETE 2+V from 12/02/2023 FINDINGS: Bones: There is no evidence of fracture or dislocation. Bony alignment is satisfactory. No cellulitic or osteomyelitic changes are identified. No lytic or sclerotic lesions are identified. Joints: Glenohumeral joint shows mild joint space narrowing and mild periarticular spurring. There i s spurring at the AC joint and undersurface of the acromion. Soft Tissues: Fluid in subcoracoid bursa. IMPRESSION: [id number] degenerative changes of the AC joint and glenohumeral joint. RADIATION DOSE DELIVERED: 461.53mGy.cm Total DLP 461.53mGy.cm Total DLP DATA REPOSITORY: All CT scans at this facility are submitted to the National Radiology Data Registry (NRDR) Dose Index Registry (DIR) with the [employer] ([employer]). RADIATION OPTIMIZATION: All CT scans at this facility use at least one of these dose optimization te chniques: automated exposure control; mA and/or kV adjustment per patient size (includes targeted exa ms where dose is matched to clinical indication); or iterative reconstruction.
== END 2024-02-04 02:55 ==
LOC: DI 02:35
PROVIDERS: PCP Nurse Practitioner Family; Visit Provider Student in an Organized Health Care Education/Training Program
DX: M19.012 Primary osteoarthritis, left shoulder
CPT/HCPCS: 73200

== ENCOUNTER → 2024-02-09 13:00 | Outpatient (BNVA) | payer MEDICARE, BC, SELFPAY | PROVIDERS: PCP Nurse Practitioner Family; Referring Provider Nurse Practitioner Family; Visit Provider Student in an Organized Health Care Education/Training Program | DX: M19.012 Primary osteoarthritis, left shoulder (principal) | CPT/HCPCS: 99214 ==

== ENCOUNTER 2024-07-11 09:53 | Outpatient (CLI) | payer MEDICARE, BC, SELFPAY | END 2024-07-11 09:54 | disposition home or self-care (01) | LOC: DI.CM 09:54 | PROVIDERS: PCP Nurse Practitioner Family; Visit Provider Nurse Practitioner Family | DX: Z71.89 Other specified counseling (principal) | CPT/HCPCS: 93010 ==

== ENCOUNTER → 2024-07-12 13:45 | Outpatient (BNVA) | payer MEDICARE, BC, SELFPAY | PROVIDERS: PCP Nurse Practitioner Family; Referring Provider Nurse Practitioner Family; Visit Provider Nurse Practitioner Gerontology | DX: R39.9 Unspecified symptoms and signs involving the genitourinary system (principal); R60.0 Localized edema; R33.9 Retention of urine, unspecified; C61 Malignant neoplasm of prostate | CPT/HCPCS: 51702; 51798; 99214 ==